=== PATIENT | male | born 1985 | race Caucasian/White ===

== ENCOUNTER 2020-11-14 03:00 | Inpatient (IN) | payer MEDICARE, MEDICAID ==
[~2020-11-14] VITALS: Ht 165.1 cm; Wt 86.3 kg
[2020-11-14] MEDS ORDERED: ZOLPIDEM TARTRATE 10 MG TABLET PO PRN (03:15)
[2020-11-14 04:27] VITALS: BP 97/60
[2020-11-14 08:17] VITALS: BP 122/77
[2020-11-14] MEDS ORDERED: ALBUTEROL SULFATE HFA 90 MCG/PUFF 8 GM INHALER IH PRN (13:00)
[2020-11-14] MEDS ORDERED: LOPERAMIDE HCL 2 MG CAPSULE PO PRN (13:00)
[2020-11-14] MEDS ORDERED: GuaiFENesin/D-METHORPHAN [SUGAR-FREE] 200-20MG/10 ML SYRUP UDCUP PO PRN (13:00)
[2020-11-14] MEDS ORDERED: MAG HYDROX/AL HYDROX/SIMETH ES 30 ML SUSPENSION UDCUP PO PRN (13:00)
[2020-11-14] MEDS ORDERED: MAGNESIUM HYDROXIDE SUSPENSION 30 ML UDCUP PO PRN (13:00)
[2020-11-14] MEDS ORDERED: CloNIDine HCL 0.1 MG TABLET PO PRN (13:00)
[2020-11-14] MEDS ORDERED: ACETAMINOPHEN 325 MG TABLET PO PRN (13:00)
[2020-11-14] MEDS ORDERED: ONDANSETRON HCL 4 MG TABLET PO PRN (13:00)
[2020-11-14] MEDS ORDERED: DOCUSATE SODIUM 100 MG CAPSULE PO PRN (13:00)
[2020-11-14] MEDS ORDERED: NICOTINE 14 MG/24 HOUR PATCH TD PRN (13:00)
[2020-11-14] MEDS: LORazepam 2 MG TABLET PO PRN (16:30)
[2020-11-14] MEDS: IBUPROFEN 400 MG TABLET PO PRN (16:31)
[2020-11-14 16:41] VITALS: BP 107/72
[2020-11-14] MEDS ORDERED: ChlorproMAZINE HCL 50 MG/2 ML AMP IM PRN ×2 (16:45)
[2020-11-14] MEDS ORDERED: DiphenhydrAMINE HCL 50 MG/ML VIAL IM PRN (16:45)
[2020-11-14] MEDS: QUEtiapine FUMARATE 200 MG TABLET PO SCH ×2 (17:00→20:21)
[2020-11-14] MEDS: TOPIRAMATE 100 MG TABLET PO SCH (17:00)
[2020-11-14] MEDS: CloZAPine 100 MG TABLET PO SCH (20:21)
[2020-11-15 00:18] VITALS: BP 114/73
[2020-11-15] MEDS: LORazepam 2 MG TABLET PO PRN ×2 (00:20→06:41)
[2020-11-15 08:08] LABS: BASOPHILS % (AUTO) 0.6 % (0.0-2.0); EOSINOPHILS % (AUTO) 5.9 % (1.0-6.0); HEMATOCRIT 33.6 % (41-53); HEMOGLOBIN 11.2 g/dL (13.5-17.5); LYMPHOCYTES # (AUTO) 1.5 K/uL (1.0-4.8); LYMPHOCYTES % (AUTO) 17.4 % (22.0-44.0); MEAN CORPUSCULAR HEMOGLOBIN 30.8 pg (26.0-34.0); MEAN CORPUSCULAR HGB CONC 33.5 G/dL (31.0-37.0); MEAN CORPUSCULAR VOLUME 92 fL (80-100); MONOCYTES # (AUTO) 0.7 K/uL (0.1-1.0); MONOCYTES % (AUTO) 7.8 % (2.0-9.0); NEUTROPHILS # (AUTO) 5.9 K/uL (1.8-7.7); NEUTROPHILS % (AUTO) 68.3 % (40.0-70.0); PLATELET COUNT (AUTO) 256 K/uL (150-450); RED BLOOD CELL COUNT(AUTO) 3.65 MIL/uL (4.50-5.90); RED CELL DISTRIBUTION WIDTH 13.6 % (11.5-14.5)
[2020-11-15 08:45] VITALS: BP 121/82
[2020-11-15 12:07] VITALS: BP 116/81
[2020-11-15] MEDS: PROPRANOLOL HCL 20 MG TABLET PO SCH ×2 (12:51→17:19)
[2020-11-15] MEDS: TOPIRAMATE 100 MG TABLET PO SCH ×2 (12:51→17:20)
[2020-11-15 16:40] VITALS: BP 108/74
[2020-11-15] MEDS: QUEtiapine FUMARATE 200 MG TABLET PO SCH ×2 (17:19→20:28)
[2020-11-15] MEDS: CloZAPine 100 MG TABLET PO SCH (20:28)
[2020-11-16 05:51] VITALS: BP 118/79
[2020-11-16 08:10] VITALS: BP 116/73
[2020-11-16] MEDS: LORazepam 2 MG TABLET PO PRN ×3 (08:23→18:11)
[2020-11-16 08:51] LABS: ANION GAP 12 mmol/L (8-16); CALCIUM, TOTAL 8.5 mg/dL (8.8-10.5); CARBON DIOXIDE 20 mmol/L (22-29); CHLORIDE 108 mmol/L (98-107); CHOL/HDL RATIO 3.2 (4.2-7.3); CHOLESTEROL 152 mg/dL (131-200); CREATININE 0.65 mg/dL (0.60-1.30); GLOMERULAR FILTR. RATE CALC > 60 mL/min (>60); GLUCOSE,RANDOM 156 mg/dL (70-110); HDL CHOLESTEROL 48 mg/dL (40-60); LDL CHOL (CALC.) 71 mg/dL (0-130); POTASSIUM 3.7 mmol/L (3.5-5.1); SODIUM SERUM 140 mmol/L (136-145); THYROID STIMULATING HORMONE 1.09 uIU/mL (0.36-3.74); TRIGLYCERIDES 165 mg/dL (15-150); UREA NITROGEN, BLOOD 6 mg/dL (7-18)
[2020-11-16] MEDS: TOPIRAMATE 100 MG TABLET PO SCH ×3 (13:07→18:12)
[2020-11-16] MEDS: PROPRANOLOL HCL 20 MG TABLET PO SCH ×3 (13:07→18:12)
[2020-11-16 16:00] VITALS: BP 116/69
[2020-11-16] MEDS: QUEtiapine FUMARATE 200 MG TABLET PO SCH ×2 (17:00→18:12)
[2020-11-16] MEDS: CloZAPine 100 MG TABLET PO SCH (20:03)
[2020-11-17 06:24] VITALS: BP 122/92
[2020-11-17] MEDS: LORazepam 2 MG TABLET PO PRN ×2 (06:33→11:33)
[2020-11-17 08:26] VITALS: BP 106/68
[2020-11-17] MEDS ORDERED: PNEUMOCOCCAL VACCINE POLYVALENT 0.5 ML VIAL [PPSV23] IM. ONE (13:00)
[2020-11-17 16:06] VITALS: BP 107/71
[2020-11-17] MEDS: QUEtiapine FUMARATE 200 MG TABLET PO SCH ×3 (17:00→20:48)
[2020-11-17] MEDS: PROPRANOLOL HCL 20 MG TABLET PO SCH (17:00)
[2020-11-17] MEDS: TOPIRAMATE 100 MG TABLET PO SCH (17:00)
[2020-11-17] MEDS: CloZAPine 100 MG TABLET PO SCH (20:35)
[2020-11-18 04:58] VITALS: BP 132/87
[2020-11-18] MEDS: LORazepam 2 MG TABLET PO PRN (07:23)
[2020-11-18 08:13] VITALS: BP 129/88
[2020-11-18] MEDS: QUEtiapine FUMARATE 100 MG TABLET PO PRN (09:16)
[2020-11-18] MEDS: TOPIRAMATE 100 MG TABLET PO SCH ×2 (11:09→16:30)
[2020-11-18] MEDS: PROPRANOLOL HCL 20 MG TABLET PO SCH ×2 (11:09→16:30)
[2020-11-18 16:02] VITALS: BP 106/69
[2020-11-18] MEDS: QUEtiapine FUMARATE 200 MG TABLET PO SCH ×2 (17:00→20:45)
[2020-11-18] MEDS: CloZAPine 100 MG TABLET PO SCH (20:45)
[2020-11-19 00:55] VITALS: BP 127/78
[2020-11-19 07:32] LABS: COVID AG,FIA SOURCE NASOPHARYNGEAL
[2020-11-19 08:13] VITALS: BP 120/79
[2020-11-19] MEDS: CloZAPine 25 MG TABLET PO SCH (08:29)
[2020-11-19] MEDS: PROPRANOLOL HCL 20 MG TABLET PO SCH ×2 (11:34→16:28)
[2020-11-19] MEDS: TOPIRAMATE 100 MG TABLET PO SCH ×2 (11:34→16:28)
[2020-11-19 16:04] VITALS: BP 130/92
[2020-11-19] MEDS: QUEtiapine FUMARATE 200 MG TABLET PO SCH ×2 (16:28→20:30)
[2020-11-19] MEDS: LORazepam 2 MG TABLET PO PRN (18:20)
[2020-11-19] MEDS: CloZAPine 100 MG TABLET PO SCH (20:30)
[2020-11-20 00:12] VITALS: BP 111/72
[2020-11-20] MEDS: LORazepam 2 MG TABLET PO PRN ×3 (06:33→20:05)
[2020-11-20 08:28] VITALS: BP 106/69
[2020-11-20] MEDS: CloZAPine 25 MG TABLET PO SCH (09:06)
[2020-11-20] MEDS: TOPIRAMATE 100 MG TABLET PO SCH ×2 (12:20→16:11)
[2020-11-20] MEDS: PROPRANOLOL HCL 20 MG TABLET PO SCH ×2 (12:20→16:11)
[2020-11-20 16:01] VITALS: BP 106/71
[2020-11-20] MEDS: QUEtiapine FUMARATE 200 MG TABLET PO SCH ×2 (16:11→21:00)
[2020-11-20] MEDS: PALIPERIDONE 6 MG ER TABLET PO SCH (20:04)
[2020-11-20] MEDS: CloZAPine 100 MG TABLET PO SCH (20:04)
[2020-11-21 05:31] VITALS: BP 101/70
[2020-11-21] MEDS: LORazepam 2 MG TABLET PO PRN ×2 (08:01→12:56)
[2020-11-21] MEDS: MULTIVITAMINS WITH MINERALS, THERAPEUTIC TABLET PO SCH (08:01)
[2020-11-21 08:02] VITALS: BP 114/74
[2020-11-21] MEDS: PALIPERIDONE 6 MG ER TABLET PO SCH ×2 (08:02→20:33)
[2020-11-21] MEDS: CloZAPine 25 MG TABLET PO SCH (08:02)
[2020-11-21] MEDS: PROPRANOLOL HCL 20 MG TABLET PO SCH ×2 (11:13→16:31)
[2020-11-21] MEDS: TOPIRAMATE 100 MG TABLET PO SCH ×2 (11:14→16:31)
[2020-11-21 16:01] VITALS: BP 112/74
[2020-11-21] MEDS: QUEtiapine FUMARATE 200 MG TABLET PO SCH ×2 (16:31→20:33)
[2020-11-21] MEDS: PETROLATUM,WHITE 28 GM JELLY TP PRN (20:18)
[2020-11-21] MEDS: CloZAPine 100 MG TABLET PO SCH (20:33)
[2020-11-22 00:08] VITALS: BP 105/62
[2020-11-22 08:11] VITALS: BP 110/73
[2020-11-22] MEDS: CloZAPine 25 MG TABLET PO SCH (08:29)
[2020-11-22] MEDS: PALIPERIDONE 6 MG ER TABLET PO SCH ×2 (08:29→20:33)
[2020-11-22] MEDS: MULTIVITAMINS WITH MINERALS, THERAPEUTIC TABLET PO SCH (08:29)
[2020-11-22] MEDS: LORazepam 2 MG TABLET PO PRN ×2 (11:19→18:59)
[2020-11-22 12:10] VITALS: BP 125/85
[2020-11-22] MEDS: TOPIRAMATE 100 MG TABLET PO SCH ×2 (12:11→16:26)
[2020-11-22] MEDS: PROPRANOLOL HCL 20 MG TABLET PO SCH ×2 (12:12→16:27)
[2020-11-22 16:01] VITALS: BP 115/84
[2020-11-22] MEDS: QUEtiapine FUMARATE 200 MG TABLET PO SCH ×2 (16:26→20:33)
[2020-11-22] MEDS: CloZAPine 100 MG TABLET PO SCH (20:33)
[2020-11-23 00:10] VITALS: BP 88/55
[2020-11-23 07:40] LABS: BASOPHILS % (AUTO) 0.5 % (0.0-2.0); EOSINOPHILS % (AUTO) 3.9 % (1.0-6.0); HEMATOCRIT 36.1 % (41-53); HEMOGLOBIN 11.8 g/dL (13.5-17.5); LYMPHOCYTES # (AUTO) 1.2 K/uL (1.0-4.8); LYMPHOCYTES % (AUTO) 9.9 % (22.0-44.0); MEAN CORPUSCULAR HEMOGLOBIN 30.1 pg (26.0-34.0); MEAN CORPUSCULAR HGB CONC 32.7 G/dL (31.0-37.0); MEAN CORPUSCULAR VOLUME 92 fL (80-100); MONOCYTES # (AUTO) 0.9 K/uL (0.1-1.0); MONOCYTES % (AUTO) 7.3 % (2.0-9.0); NEUTROPHILS # (AUTO) 9.9 K/uL (1.8-7.7); NEUTROPHILS % (AUTO) 78.4 % (40.0-70.0); PLATELET COUNT (AUTO) 356 K/uL (150-450); RED BLOOD CELL COUNT(AUTO) 3.92 MIL/uL (4.50-5.90); RED CELL DISTRIBUTION WIDTH 14.3 % (11.5-14.5)
[2020-11-23 07:56] LABS: COVID AG,FIA SOURCE NASOPHARYNGEAL
[2020-11-23 08:26] VITALS: BP 112/68
[2020-11-23] MEDS: MULTIVITAMINS WITH MINERALS, THERAPEUTIC TABLET PO SCH (08:26)
[2020-11-23] MEDS: PALIPERIDONE 6 MG ER TABLET PO SCH ×2 (08:27→20:18)
[2020-11-23] MEDS: CloZAPine 25 MG TABLET PO SCH (08:27)
[2020-11-23] MEDS: LORazepam 2 MG TABLET PO PRN ×3 (10:16→20:17)
[2020-11-23] MEDS: TOPIRAMATE 100 MG TABLET PO SCH ×2 (12:11→16:13)
[2020-11-23] MEDS: PROPRANOLOL HCL 20 MG TABLET PO SCH ×2 (12:14→16:12)
[2020-11-23 16:04] VITALS: BP 107/70
[2020-11-23] MEDS: QUEtiapine FUMARATE 200 MG TABLET PO SCH ×2 (16:12→20:18)
[2020-11-23] MEDS: CloZAPine 100 MG TABLET PO SCH (20:18)
[2020-11-24 00:24] VITALS: BP 110/68
[2020-11-24] MEDS: PALIPERIDONE 6 MG ER TABLET PO SCH ×2 (08:08→20:12)
[2020-11-24] MEDS: CloZAPine 25 MG TABLET PO SCH (08:08)
[2020-11-24] MEDS: MULTIVITAMINS WITH MINERALS, THERAPEUTIC TABLET PO SCH (08:08)
[2020-11-24 08:24] VITALS: BP 113/78
[2020-11-24] MEDS: PROPRANOLOL HCL 20 MG TABLET PO SCH ×2 (12:11→15:58)
[2020-11-24] MEDS: TOPIRAMATE 100 MG TABLET PO SCH ×2 (12:12→15:58)
[2020-11-24] MEDS: LORazepam 2 MG TABLET PO PRN (12:19)
[2020-11-24] MEDS: QUEtiapine FUMARATE 200 MG TABLET PO SCH ×2 (15:57→20:13)
[2020-11-24 16:19] VITALS: BP 100/66
[2020-11-24] MEDS: CloZAPine 100 MG TABLET PO SCH (20:13)
[2020-11-25 00:47] VITALS: BP 110/62
[2020-11-25 08:05] VITALS: BP 111/76
[2020-11-25] MEDS: MULTIVITAMINS WITH MINERALS, THERAPEUTIC TABLET PO SCH (08:23)
[2020-11-25] MEDS: CloZAPine 25 MG TABLET PO SCH (08:23)
[2020-11-25] MEDS: LORazepam 2 MG TABLET PO PRN ×3 (08:23→18:50)
[2020-11-25] MEDS: PETROLATUM,WHITE 28 GM JELLY TP PRN (08:23)
[2020-11-25] MEDS: PALIPERIDONE 6 MG ER TABLET PO SCH ×2 (08:23→20:42)
[2020-11-25] MEDS: PROPRANOLOL HCL 20 MG TABLET PO SCH ×2 (12:48→17:08)
[2020-11-25] MEDS: TOPIRAMATE 100 MG TABLET PO SCH ×2 (12:48→17:08)
[2020-11-25 16:01] VITALS: BP 111/64
[2020-11-25] MEDS: QUEtiapine FUMARATE 200 MG TABLET PO SCH ×2 (16:40→20:42)
[2020-11-25] MEDS: CloZAPine 100 MG TABLET PO SCH (20:41)
[2020-11-26 00:40] VITALS: BP 109/57
[2020-11-26 08:07] VITALS: BP 116/73
[2020-11-26] MEDS: LORazepam 2 MG TABLET PO PRN ×3 (08:40→19:10)
[2020-11-26] MEDS: MULTIVITAMINS WITH MINERALS, THERAPEUTIC TABLET PO SCH (08:40)
[2020-11-26] MEDS: PALIPERIDONE 6 MG ER TABLET PO SCH ×2 (08:40→20:31)
[2020-11-26] MEDS: CloZAPine 25 MG TABLET PO SCH (08:40)
[2020-11-26] MEDS: TOPIRAMATE 100 MG TABLET PO SCH ×2 (11:40→16:30)
[2020-11-26] MEDS: PROPRANOLOL HCL 20 MG TABLET PO SCH ×2 (11:40→16:30)
[2020-11-26] MEDS: PETROLATUM,WHITE 28 GM JELLY TP PRN (11:40)
[2020-11-26 16:04] VITALS: BP 112/68
[2020-11-26] MEDS: QUEtiapine FUMARATE 200 MG TABLET PO SCH ×2 (16:30→20:31)
[2020-11-26] MEDS: CloZAPine 100 MG TABLET PO SCH (20:31)
[2020-11-27 05:35] VITALS: BP 102/71
[2020-11-27] MEDS: PETROLATUM,WHITE 28 GM JELLY TP PRN (05:48)
[2020-11-27] MEDS: LORazepam 2 MG TABLET PO PRN ×3 (05:48→19:19)
[2020-11-27 08:07] VITALS: BP 106/68
[2020-11-27] MEDS: MULTIVITAMINS WITH MINERALS, THERAPEUTIC TABLET PO SCH (09:02)
[2020-11-27] MEDS: PALIPERIDONE 6 MG ER TABLET PO SCH ×2 (09:02→20:28)
[2020-11-27] MEDS: CloZAPine 25 MG TABLET PO SCH (09:02)
[2020-11-27] MEDS: TOPIRAMATE 100 MG TABLET PO SCH ×2 (12:09→16:27)
[2020-11-27] MEDS: PROPRANOLOL HCL 20 MG TABLET PO SCH ×2 (12:10→16:27)
[2020-11-27 16:12] VITALS: BP 102/68
[2020-11-27] MEDS: QUEtiapine FUMARATE 200 MG TABLET PO SCH ×2 (16:27→20:28)
[2020-11-27] MEDS: CloZAPine 100 MG TABLET PO SCH (20:28)
[2020-11-28 00:22] VITALS: BP 93/57
[2020-11-28 08:06] VITALS: BP 113/68
[2020-11-28] MEDS: MULTIVITAMINS WITH MINERALS, THERAPEUTIC TABLET PO SCH (08:23)
[2020-11-28] MEDS: PALIPERIDONE 6 MG ER TABLET PO SCH ×2 (08:23→20:16)
[2020-11-28] MEDS: LORazepam 2 MG TABLET PO PRN ×2 (08:24→12:29)
[2020-11-28] MEDS: CloZAPine 25 MG TABLET PO SCH (08:24)
[2020-11-28] MEDS: PROPRANOLOL HCL 20 MG TABLET PO SCH ×2 (12:28→16:01)
[2020-11-28] MEDS: TOPIRAMATE 100 MG TABLET PO SCH ×2 (12:29→16:02)
[2020-11-28] MEDS: QUEtiapine FUMARATE 200 MG TABLET PO SCH ×2 (16:02→20:16)
[2020-11-28 16:04] VITALS: BP 102/65
[2020-11-28] MEDS: CloZAPine 100 MG TABLET PO SCH (20:16)
[2020-11-29 00:18] VITALS: BP 90/56
[2020-11-29] MEDS: LORazepam 2 MG TABLET PO PRN ×4 (04:17→20:11)
[2020-11-29] MEDS: PETROLATUM,WHITE 28 GM JELLY TP PRN (06:14)
[2020-11-29 07:54] LABS: BASOPHILS % (AUTO) 0.9 % (0.0-2.0); EOSINOPHILS % (AUTO) 7.1 % (1.0-6.0); HEMATOCRIT 33.2 % (41-53); HEMOGLOBIN 11.1 g/dL (13.5-17.5); LYMPHOCYTES # (AUTO) 1.6 K/uL (1.0-4.8); LYMPHOCYTES % (AUTO) 21.3 % (22.0-44.0); MEAN CORPUSCULAR HGB CONC 33.4 G/dL (31.0-37.0); MEAN CORPUSCULAR VOLUME 93 fL (80-100); MONOCYTES # (AUTO) 0.7 K/uL (0.1-1.0); MONOCYTES % (AUTO) 9.7 % (2.0-9.0); NEUTROPHILS # (AUTO) 4.5 K/uL (1.8-7.7); PLATELET COUNT (AUTO) 366 K/uL (150-450); RED BLOOD CELL COUNT(AUTO) 3.57 MIL/uL (4.50-5.90); RED CELL DISTRIBUTION WIDTH 14.4 % (11.5-14.5)
[2020-11-29 07:55] LABS: COVID AG,FIA SOURCE NASOPHARYNGEAL
[2020-11-29] MEDS: CloZAPine 25 MG TABLET PO SCH (07:56)
[2020-11-29] MEDS: PALIPERIDONE 6 MG ER TABLET PO SCH ×2 (07:56→20:05)
[2020-11-29] MEDS: MULTIVITAMINS WITH MINERALS, THERAPEUTIC TABLET PO SCH (07:56)
[2020-11-29 08:03] VITALS: BP 104/63
[2020-11-29] MEDS: PROPRANOLOL HCL 20 MG TABLET PO SCH ×2 (12:15→16:01)
[2020-11-29] MEDS: TOPIRAMATE 100 MG TABLET PO SCH ×2 (12:15→16:02)
[2020-11-29] MEDS: QUEtiapine FUMARATE 200 MG TABLET PO SCH ×2 (16:01→20:05)
[2020-11-29 16:02] VITALS: BP 103/71
[2020-11-29] MEDS: IBUPROFEN 400 MG TABLET PO PRN (16:43)
[2020-11-29] MEDS: CloZAPine 100 MG TABLET PO SCH (20:06)
[2020-11-30 00:23] VITALS: BP 103/62
[2020-11-30] MEDS: LORazepam 2 MG TABLET PO PRN (08:12)
[2020-11-30] MEDS: MULTIVITAMINS WITH MINERALS, THERAPEUTIC TABLET PO SCH (08:12)
[2020-11-30] MEDS: PALIPERIDONE 6 MG ER TABLET PO SCH ×2 (08:12→20:29)
[2020-11-30] MEDS: CloZAPine 25 MG TABLET PO SCH (08:12)
[2020-11-30 08:24] VITALS: BP 108/68
[2020-11-30] MEDS: TOPIRAMATE 100 MG TABLET PO SCH ×2 (11:45→17:05)
[2020-11-30] MEDS: PROPRANOLOL HCL 20 MG TABLET PO SCH ×2 (11:46→17:05)
[2020-11-30 16:01] VITALS: BP 110/68
[2020-11-30] MEDS: QUEtiapine FUMARATE 200 MG TABLET PO SCH ×2 (17:05→20:55)
[2020-11-30] MEDS: CloZAPine 100 MG TABLET PO SCH (20:29)
[2020-12-01 00:13] VITALS: BP 120/78
[2020-12-01 08:18] VITALS: BP 106/69
[2020-12-01] MEDS: PALIPERIDONE 6 MG ER TABLET PO SCH ×2 (09:00→20:42)
[2020-12-01] MEDS: MULTIVITAMINS WITH MINERALS, THERAPEUTIC TABLET PO SCH (09:16)
[2020-12-01] MEDS: CloZAPine 25 MG TABLET PO SCH (09:16)
[2020-12-01] MEDS: TOPIRAMATE 100 MG TABLET PO SCH ×2 (11:56→16:35)
[2020-12-01] MEDS: PROPRANOLOL HCL 20 MG TABLET PO SCH ×2 (11:56→16:35)
[2020-12-01] MEDS: LORazepam 2 MG TABLET PO PRN ×2 (12:05→20:25)
[2020-12-01 16:00] VITALS: BP 110/62
[2020-12-01] MEDS: QUEtiapine FUMARATE 200 MG TABLET PO SCH ×3 (17:00→21:20)
[2020-12-01] MEDS: CloZAPine 100 MG TABLET PO SCH (20:43)
[2020-12-02 00:11] VITALS: BP 78/52
[2020-12-02] MEDS: CloZAPine 25 MG TABLET PO SCH (08:04)
[2020-12-02] MEDS: PALIPERIDONE 6 MG ER TABLET PO SCH ×2 (08:04→20:49)
[2020-12-02] MEDS: MULTIVITAMINS WITH MINERALS, THERAPEUTIC TABLET PO SCH (08:04)
[2020-12-02] MEDS: LORazepam 2 MG TABLET PO PRN ×2 (08:05→20:24)
[2020-12-02] MEDS: TOPIRAMATE 100 MG TABLET PO SCH ×2 (12:00→17:32)
[2020-12-02] MEDS: PROPRANOLOL HCL 20 MG TABLET PO SCH ×2 (12:01→17:33)
[2020-12-02 13:31] VITALS: BP 99/64
[2020-12-02 17:33] VITALS: BP 114/69
[2020-12-02] MEDS: QUEtiapine FUMARATE 200 MG TABLET PO SCH ×2 (17:33→20:49)
[2020-12-02] MEDS: CloZAPine 100 MG TABLET PO SCH (20:49)
[2020-12-03 00:13] VITALS: BP 104/62
[2020-12-03] MEDS: CloZAPine 25 MG TABLET PO SCH (09:09)
[2020-12-03] MEDS: PALIPERIDONE 6 MG ER TABLET PO SCH ×2 (09:09→20:12)
[2020-12-03] MEDS: MULTIVITAMINS WITH MINERALS, THERAPEUTIC TABLET PO SCH (09:09)
[2020-12-03] MEDS: PROPRANOLOL HCL 20 MG TABLET PO SCH ×2 (11:21→16:15)
[2020-12-03] MEDS: TOPIRAMATE 100 MG TABLET PO SCH ×2 (11:21→16:14)
[2020-12-03 12:37] VITALS: BP 95/63
[2020-12-03] MEDS: LORazepam 2 MG TABLET PO PRN ×2 (14:39→21:28)
[2020-12-03 16:04] VITALS: BP 110/68
[2020-12-03] MEDS: QUEtiapine FUMARATE 200 MG TABLET PO SCH ×2 (16:14→20:12)
[2020-12-03] MEDS: CloZAPine 100 MG TABLET PO SCH (20:12)
[2020-12-04 00:05] VITALS: BP 104/62
[2020-12-04 08:05] VITALS: BP 109/64
[2020-12-04] MEDS: CloZAPine 25 MG TABLET PO SCH (08:19)
[2020-12-04] MEDS: PALIPERIDONE 6 MG ER TABLET PO SCH ×2 (08:20→20:01)
[2020-12-04] MEDS: MULTIVITAMINS WITH MINERALS, THERAPEUTIC TABLET PO SCH (08:20)
[2020-12-04] MEDS: TOPIRAMATE 100 MG TABLET PO SCH ×2 (12:25→15:43)
[2020-12-04] MEDS: PROPRANOLOL HCL 20 MG TABLET PO SCH ×2 (12:25→15:43)
[2020-12-04] MEDS: QUEtiapine FUMARATE 200 MG TABLET PO SCH ×2 (15:43→20:01)
[2020-12-04 16:19] VITALS: BP 100/62
[2020-12-04] MEDS: LORazepam 2 MG TABLET PO PRN (19:02)
[2020-12-04] MEDS: CloZAPine 100 MG TABLET PO SCH (20:01)
[2020-12-05 00:57] VITALS: BP 106/63
[2020-12-05 08:31] VITALS: BP 108/64
[2020-12-05] MEDS: MULTIVITAMINS WITH MINERALS, THERAPEUTIC TABLET PO SCH ×2 (09:00→09:04)
[2020-12-05] MEDS: THIAMINE 100 MG TABLET PO SCH (09:06)
[2020-12-05] MEDS: PALIPERIDONE 6 MG ER TABLET PO SCH ×3 (09:06→20:45)
[2020-12-05] MEDS: CloZAPine 25 MG TABLET PO SCH (09:07)
[2020-12-05] MEDS: PROPRANOLOL HCL 20 MG TABLET PO SCH ×2 (12:15→16:55)
[2020-12-05] MEDS: LORazepam 2 MG TABLET PO PRN (12:15)
[2020-12-05] MEDS: TOPIRAMATE 100 MG TABLET PO SCH ×2 (12:15→16:57)
[2020-12-05 16:19] VITALS: BP 104/71
[2020-12-05] MEDS: QUEtiapine FUMARATE 200 MG TABLET PO SCH ×2 (16:57→20:22)
[2020-12-05] MEDS: CloZAPine 100 MG TABLET PO SCH (20:22)
[2020-12-06 00:58] VITALS: BP 103/62
[2020-12-06 07:37] LABS: BASOPHILS % (AUTO) 0.8 % (0.0-2.0); EOSINOPHILS % (AUTO) 6.7 % (1.0-6.0); HEMATOCRIT 34.8 % (41-53); HEMOGLOBIN 11.7 g/dL (13.5-17.5); LYMPHOCYTES # (AUTO) 1.5 K/uL (1.0-4.8); LYMPHOCYTES % (AUTO) 21.3 % (22.0-44.0); MEAN CORPUSCULAR HEMOGLOBIN 31.1 pg (26.0-34.0); MEAN CORPUSCULAR HGB CONC 33.5 G/dL (31.0-37.0); MEAN CORPUSCULAR VOLUME 93 fL (80-100); MONOCYTES # (AUTO) 0.7 K/uL (0.1-1.0); MONOCYTES % (AUTO) 9.4 % (2.0-9.0); NEUTROPHILS # (AUTO) 4.3 K/uL (1.8-7.7); NEUTROPHILS % (AUTO) 61.8 % (40.0-70.0); PLATELET COUNT (AUTO) 362 K/uL (150-450); RED BLOOD CELL COUNT(AUTO) 3.75 MIL/uL (4.50-5.90); RED CELL DISTRIBUTION WIDTH 14.3 % (11.5-14.5)
[2020-12-06 07:39] LABS: COVID AG,FIA SOURCE NASOPHARYNGEAL
[2020-12-06] MEDS: CloZAPine 25 MG TABLET PO SCH (08:52)
[2020-12-06] MEDS: PALIPERIDONE 6 MG ER TABLET PO SCH ×2 (08:52→20:33)
[2020-12-06] MEDS: THIAMINE 100 MG TABLET PO SCH (08:53)
[2020-12-06] MEDS: MULTIVITAMINS WITH MINERALS, THERAPEUTIC TABLET PO SCH ×2 (08:53→09:00)
[2020-12-06 09:18] VITALS: BP 112/66
[2020-12-06] MEDS: PROPRANOLOL HCL 20 MG TABLET PO SCH ×2 (12:15→16:35)
[2020-12-06] MEDS: TOPIRAMATE 100 MG TABLET PO SCH ×2 (12:16→16:35)
[2020-12-06] MEDS: LORazepam 2 MG TABLET PO PRN (15:51)
[2020-12-06 16:07] VITALS: BP 111/68
[2020-12-06] MEDS: QUEtiapine FUMARATE 200 MG TABLET PO SCH ×2 (16:35→20:33)
[2020-12-06] MEDS: CloZAPine 100 MG TABLET PO SCH (20:33)
[2020-12-07 00:21] VITALS: BP 104/54
[2020-12-07 08:13] VITALS: BP 103/68
[2020-12-07] MEDS: MULTIVITAMINS WITH MINERALS, THERAPEUTIC TABLET PO SCH ×2 (08:35→08:37)
[2020-12-07] MEDS: CloZAPine 25 MG TABLET PO SCH (08:36)
[2020-12-07] MEDS: THIAMINE 100 MG TABLET PO SCH (08:37)
[2020-12-07] MEDS: PALIPERIDONE 6 MG ER TABLET PO SCH ×2 (09:00→20:29)
[2020-12-07] MEDS: LORazepam 2 MG TABLET PO PRN ×2 (11:01→18:40)
[2020-12-07] MEDS: TOPIRAMATE 100 MG TABLET PO SCH ×2 (12:05→16:24)
[2020-12-07] MEDS: PROPRANOLOL HCL 20 MG TABLET PO SCH ×2 (12:05→16:24)
[2020-12-07 16:08] VITALS: BP 108/76
[2020-12-07] MEDS: QUEtiapine FUMARATE 200 MG TABLET PO SCH ×2 (16:25→20:29)
[2020-12-07] MEDS: CloZAPine 100 MG TABLET PO SCH (20:30)
[2020-12-08 00:33] VITALS: BP 110/70
[2020-12-08 08:12] VITALS: BP 111/67
[2020-12-08] MEDS: MULTIVITAMINS WITH MINERALS, THERAPEUTIC TABLET PO SCH (09:30)
[2020-12-08] MEDS: CloZAPine 25 MG TABLET PO SCH (09:30)
[2020-12-08] MEDS: PALIPERIDONE 6 MG ER TABLET PO SCH ×2 (09:31→20:17)
[2020-12-08] MEDS: THIAMINE 100 MG TABLET PO SCH (09:31)
[2020-12-08] MEDS: TOPIRAMATE 100 MG TABLET PO SCH ×2 (12:06→16:10)
[2020-12-08] MEDS: PROPRANOLOL HCL 20 MG TABLET PO SCH ×2 (12:06→16:10)
[2020-12-08 16:08] VITALS: BP 104/71
[2020-12-08] MEDS: QUEtiapine FUMARATE 200 MG TABLET PO SCH ×2 (16:10→20:12)
[2020-12-08] MEDS: CloZAPine 100 MG TABLET PO SCH (20:17)
[2020-12-09 00:24] VITALS: BP 102/63
[2020-12-09] MEDS: MULTIVITAMINS WITH MINERALS, THERAPEUTIC TABLET PO SCH (08:57)
[2020-12-09] MEDS: PALIPERIDONE 6 MG ER TABLET PO SCH ×2 (08:57→20:47)
[2020-12-09] MEDS: CloZAPine 25 MG TABLET PO SCH (08:57)
[2020-12-09] MEDS: THIAMINE 100 MG TABLET PO SCH (08:57)
[2020-12-09 09:25] VITALS: BP 109/78
[2020-12-09] MEDS: PROPRANOLOL HCL 20 MG TABLET PO SCH ×2 (12:52→16:34)
[2020-12-09] MEDS: TOPIRAMATE 100 MG TABLET PO SCH ×2 (12:52→16:34)
[2020-12-09 16:06] VITALS: BP 107/66
[2020-12-09] MEDS: QUEtiapine FUMARATE 200 MG TABLET PO SCH ×2 (16:34→20:47)
[2020-12-09] MEDS: CloZAPine 100 MG TABLET PO SCH (20:46)
[2020-12-10] MEDS: LORazepam 2 MG TABLET PO PRN ×3 (00:11→20:11)
[2020-12-10 00:24] VITALS: BP 105/72
[2020-12-10 08:14] VITALS: BP 100/63
[2020-12-10] MEDS: PALIPERIDONE 6 MG ER TABLET PO SCH ×2 (08:52→20:11)
[2020-12-10] MEDS: CloZAPine 25 MG TABLET PO SCH (08:53)
[2020-12-10] MEDS: MULTIVITAMINS WITH MINERALS, THERAPEUTIC TABLET PO SCH (08:53)
[2020-12-10] MEDS: THIAMINE 100 MG TABLET PO SCH (08:53)
[2020-12-10] MEDS: TOPIRAMATE 100 MG TABLET PO SCH ×2 (13:18→16:22)
[2020-12-10] MEDS: PROPRANOLOL HCL 20 MG TABLET PO SCH ×2 (13:18→16:22)
[2020-12-10 16:14] VITALS: BP 109/77
[2020-12-10] MEDS: QUEtiapine FUMARATE 200 MG TABLET PO SCH ×2 (16:22→20:11)
[2020-12-10] MEDS: CloZAPine 100 MG TABLET PO SCH (20:11)
[2020-12-10] MEDS ORDERED: TUBERCULIN, PURIFIED PROTEIN DERIVATIVE 5 TU/0.1 ML SYRINGE ID ONE (21:30)
[2020-12-11 05:00] VITALS: BP 102/67
[2020-12-11 08:29] VITALS: BP 121/79
[2020-12-11] MEDS: THIAMINE 100 MG TABLET PO SCH (09:08)
[2020-12-11] MEDS: PALIPERIDONE 6 MG ER TABLET PO SCH ×2 (09:08→20:29)
[2020-12-11] MEDS: CloZAPine 25 MG TABLET PO SCH (09:09)
[2020-12-11] MEDS: MULTIVITAMINS WITH MINERALS, THERAPEUTIC TABLET PO SCH (09:09)
[2020-12-11] MEDS: LORazepam 2 MG TABLET PO PRN (09:09)
[2020-12-11] MEDS: PROPRANOLOL HCL 20 MG TABLET PO SCH ×2 (11:54→16:31)
[2020-12-11] MEDS: TOPIRAMATE 100 MG TABLET PO SCH ×2 (11:54→16:30)
[2020-12-11 16:09] VITALS: BP 110/67
[2020-12-11] MEDS: QUEtiapine FUMARATE 200 MG TABLET PO SCH ×2 (16:31→20:29)
[2020-12-11] MEDS: CloZAPine 100 MG TABLET PO SCH (20:28)
[2020-12-12 00:41] VITALS: BP 104/62
[2020-12-12 08:29] VITALS: BP 104/69
[2020-12-12] MEDS: CloZAPine 25 MG TABLET PO SCH (09:20)
[2020-12-12] MEDS: PALIPERIDONE 6 MG ER TABLET PO SCH ×2 (09:20→20:42)
[2020-12-12] MEDS: MULTIVITAMINS WITH MINERALS, THERAPEUTIC TABLET PO SCH (09:20)
[2020-12-12] MEDS: THIAMINE 100 MG TABLET PO SCH (09:21)
[2020-12-12] MEDS: LORazepam 2 MG TABLET PO PRN ×2 (10:52→16:09)
[2020-12-12] MEDS: TOPIRAMATE 100 MG TABLET PO SCH ×2 (12:33→16:09)
[2020-12-12] MEDS: PROPRANOLOL HCL 20 MG TABLET PO SCH ×2 (12:33→16:09)
[2020-12-12] MEDS: QUEtiapine FUMARATE 200 MG TABLET PO SCH ×2 (16:09→20:43)
[2020-12-12 16:10] VITALS: BP 133/82
[2020-12-12] MEDS: QUEtiapine FUMARATE 100 MG TABLET PO PRN (20:42)
[2020-12-12] MEDS: CloZAPine 100 MG TABLET PO SCH (20:42)
[2020-12-13 00:45] VITALS: BP 114/73
[2020-12-13 07:21] LABS: BASOPHILS % (AUTO) 0.8 % (0.0-2.0); HEMATOCRIT 35.1 % (41-53); HEMOGLOBIN 11.6 g/dL (13.5-17.5); LYMPHOCYTES # (AUTO) 1.8 K/uL (1.0-4.8); LYMPHOCYTES % (AUTO) 26.4 % (22.0-44.0); MEAN CORPUSCULAR HEMOGLOBIN 30.9 pg (26.0-34.0); MEAN CORPUSCULAR HGB CONC 33.2 G/dL (31.0-37.0); MEAN CORPUSCULAR VOLUME 93 fL (80-100); MONOCYTES # (AUTO) 0.7 K/uL (0.1-1.0); MONOCYTES % (AUTO) 10.7 % (2.0-9.0); NEUTROPHILS # (AUTO) 3.6 K/uL (1.8-7.7); NEUTROPHILS % (AUTO) 53.1 % (40.0-70.0); PLATELET COUNT (AUTO) 354 K/uL (150-450); RED BLOOD CELL COUNT(AUTO) 3.76 MIL/uL (4.50-5.90); RED CELL DISTRIBUTION WIDTH 14.4 % (11.5-14.5)
[2020-12-13 07:31] LABS: COVID AG,FIA SOURCE NASOPHARYNGEAL
[2020-12-13] MEDS: MULTIVITAMINS WITH MINERALS, THERAPEUTIC TABLET PO SCH (08:02)
[2020-12-13] MEDS: THIAMINE 100 MG TABLET PO SCH (08:02)
[2020-12-13] MEDS: CloZAPine 25 MG TABLET PO SCH (08:02)
[2020-12-13] MEDS: PALIPERIDONE 6 MG ER TABLET PO SCH ×2 (08:02→20:08)
[2020-12-13 08:25] VITALS: BP 116/80
[2020-12-13] MEDS: TOPIRAMATE 100 MG TABLET PO SCH ×2 (11:23→16:01)
[2020-12-13] MEDS: PROPRANOLOL HCL 20 MG TABLET PO SCH ×2 (11:26→16:01)
[2020-12-13] MEDS: QUEtiapine FUMARATE 200 MG TABLET PO SCH ×2 (16:01→20:10)
[2020-12-13 16:19] VITALS: BP 117/79
[2020-12-13] MEDS: LORazepam 2 MG TABLET PO PRN (18:11)
[2020-12-13] MEDS: CloZAPine 100 MG TABLET PO SCH (20:08)
[2020-12-14] VITALS: BP 127/84
[2020-12-14 08:08] VITALS: BP 112/73
[2020-12-14] MEDS: CloZAPine 25 MG TABLET PO SCH (08:18)
[2020-12-14] MEDS: MULTIVITAMINS WITH MINERALS, THERAPEUTIC TABLET PO SCH (08:18)
[2020-12-14] MEDS: THIAMINE 100 MG TABLET PO SCH (08:18)
[2020-12-14] MEDS: PALIPERIDONE 6 MG ER TABLET PO SCH ×2 (08:18→20:24)
[2020-12-14] MEDS: LORazepam 2 MG TABLET PO PRN (09:29)
[2020-12-14] MEDS: TOPIRAMATE 100 MG TABLET PO SCH ×2 (12:17→16:38)
[2020-12-14] MEDS: PROPRANOLOL HCL 20 MG TABLET PO SCH ×2 (12:18→16:39)
[2020-12-14 16:07] VITALS: BP 128/84
[2020-12-14] MEDS: QUEtiapine FUMARATE 200 MG TABLET PO SCH ×2 (16:38→20:24)
[2020-12-14] MEDS: CloZAPine 100 MG TABLET PO SCH (20:24)
[2020-12-15] MEDS: LORazepam 2 MG TABLET PO PRN ×2 (01:36→19:38)
[2020-12-15 01:41] VITALS: BP 94/58
[2020-12-15] MEDS: MULTIVITAMINS WITH MINERALS, THERAPEUTIC TABLET PO SCH (08:18)
[2020-12-15] MEDS: THIAMINE 100 MG TABLET PO SCH (08:18)
[2020-12-15] MEDS: CloZAPine 25 MG TABLET PO SCH (08:18)
[2020-12-15] MEDS: PALIPERIDONE 6 MG ER TABLET PO SCH ×2 (08:18→20:26)
[2020-12-15 08:19] VITALS: BP 108/73
[2020-12-15] MEDS: PROPRANOLOL HCL 20 MG TABLET PO SCH ×2 (12:19→16:22)
[2020-12-15] MEDS: TOPIRAMATE 100 MG TABLET PO SCH ×2 (12:19→16:22)
[2020-12-15 16:10] VITALS: BP 120/72
[2020-12-15] MEDS: QUEtiapine FUMARATE 200 MG TABLET PO SCH ×2 (16:22→20:27)
[2020-12-15] MEDS: CloZAPine 100 MG TABLET PO SCH (20:27)
[2020-12-16] MEDS: LORazepam 2 MG TABLET PO PRN ×2 (02:32→17:17)
[2020-12-16 02:34] VITALS: BP 100/60
[2020-12-16 08:08] VITALS: BP 117/62
[2020-12-16] MEDS: THIAMINE 100 MG TABLET PO SCH (08:21)
[2020-12-16] MEDS: MULTIVITAMINS WITH MINERALS, THERAPEUTIC TABLET PO SCH (08:21)
[2020-12-16] MEDS: PALIPERIDONE 6 MG ER TABLET PO SCH ×2 (08:22→20:16)
[2020-12-16] MEDS: CloZAPine 25 MG TABLET PO SCH (08:22)
[2020-12-16] MEDS: TOPIRAMATE 100 MG TABLET PO SCH ×2 (11:59→16:29)
[2020-12-16] MEDS: PROPRANOLOL HCL 20 MG TABLET PO SCH ×2 (11:59→16:28)
[2020-12-16 16:10] VITALS: BP 100/64
[2020-12-16] MEDS: QUEtiapine FUMARATE 200 MG TABLET PO SCH ×2 (16:29→20:16)
[2020-12-16 17:12] VITALS: BP 114/79
[2020-12-16] MEDS: CloZAPine 100 MG TABLET PO SCH (20:16)
[2020-12-17] MEDS: LORazepam 2 MG TABLET PO PRN ×3 (00:02→16:45)
[2020-12-17 00:14] VITALS: BP 104/62
[2020-12-17] MEDS: CloZAPine 25 MG TABLET PO SCH (08:02)
[2020-12-17] MEDS: PALIPERIDONE 6 MG ER TABLET PO SCH ×2 (08:02→20:09)
[2020-12-17] MEDS: THIAMINE 100 MG TABLET PO SCH (08:02)
[2020-12-17] MEDS: MULTIVITAMINS WITH MINERALS, THERAPEUTIC TABLET PO SCH (08:09)
[2020-12-17 09:06] VITALS: BP 104/68
[2020-12-17] MEDS: TOPIRAMATE 100 MG TABLET PO SCH ×2 (12:16→16:08)
[2020-12-17] MEDS: PROPRANOLOL HCL 20 MG TABLET PO SCH ×2 (12:16→16:08)
[2020-12-17] MEDS: QUEtiapine FUMARATE 200 MG TABLET PO SCH ×2 (16:09→20:09)
[2020-12-17 16:10] VITALS: BP 107/65
[2020-12-17] MEDS: CloZAPine 100 MG TABLET PO SCH (20:09)
[2020-12-18 03:06] VITALS: BP 106/72
[2020-12-18] MEDS: LORazepam 2 MG TABLET PO PRN ×3 (03:08→19:06)
[2020-12-18 08:16] VITALS: BP 120/84
[2020-12-18] MEDS ORDERED: LEUPROLIDE ACETATE 7.5 MG KIT IM SCH (09:00)
[2020-12-18] MEDS: CloZAPine 25 MG TABLET PO SCH (10:15)
[2020-12-18] MEDS: THIAMINE 100 MG TABLET PO SCH (10:15)
[2020-12-18] MEDS: MULTIVITAMINS WITH MINERALS, THERAPEUTIC TABLET PO SCH (10:15)
[2020-12-18] MEDS: PALIPERIDONE 6 MG ER TABLET PO SCH ×2 (10:15→20:56)
[2020-12-18] MEDS: PROPRANOLOL HCL 20 MG TABLET PO SCH ×2 (12:05→16:14)
[2020-12-18] MEDS: TOPIRAMATE 100 MG TABLET PO SCH ×2 (12:05→16:14)
[2020-12-18 16:08] VITALS: BP 115/71
[2020-12-18] MEDS: QUEtiapine FUMARATE 200 MG TABLET PO SCH ×2 (16:15→20:58)
[2020-12-18] MEDS: CloZAPine 100 MG TABLET PO SCH (20:56)
[2020-12-19 00:40] VITALS: BP 118/76
[2020-12-19] MEDS: CloZAPine 25 MG TABLET PO SCH (09:10)
[2020-12-19] MEDS: THIAMINE 100 MG TABLET PO SCH (09:10)
[2020-12-19] MEDS: PALIPERIDONE 6 MG ER TABLET PO SCH ×2 (09:10→20:03)
[2020-12-19] MEDS: MULTIVITAMINS WITH MINERALS, THERAPEUTIC TABLET PO SCH (09:10)
[2020-12-19 09:29] VITALS: BP 133/86
[2020-12-19] MEDS: LORazepam 2 MG TABLET PO PRN ×2 (10:57→19:18)
[2020-12-19] MEDS: PROPRANOLOL HCL 20 MG TABLET PO SCH ×2 (12:21→16:17)
[2020-12-19] MEDS: TOPIRAMATE 100 MG TABLET PO SCH ×2 (12:21→16:17)
[2020-12-19 16:08] VITALS: BP 110/77
[2020-12-19] MEDS: QUEtiapine FUMARATE 200 MG TABLET PO SCH ×2 (16:17→20:03)
[2020-12-19] MEDS: CloZAPine 100 MG TABLET PO SCH (20:03)
[2020-12-20 00:26] VITALS: BP 118/73
[2020-12-20] MEDS: LORazepam 2 MG TABLET PO PRN ×3 (01:33→21:13)
[2020-12-20 07:49] LABS: BASOPHILS % (AUTO) 0.8 % (0.0-2.0); EOSINOPHILS % (AUTO) 6.4 % (1.0-6.0); HEMOGLOBIN 12.2 g/dL (13.5-17.5); LYMPHOCYTES # (AUTO) 1.9 K/uL (1.0-4.8); LYMPHOCYTES % (AUTO) 22.3 % (22.0-44.0); MEAN CORPUSCULAR HEMOGLOBIN 30.5 pg (26.0-34.0); MEAN CORPUSCULAR HGB CONC 33.1 G/dL (31.0-37.0); MEAN CORPUSCULAR VOLUME 92 fL (80-100); MONOCYTES # (AUTO) 0.9 K/uL (0.1-1.0); MONOCYTES % (AUTO) 10.4 % (2.0-9.0); NEUTROPHILS # (AUTO) 5.1 K/uL (1.8-7.7); NEUTROPHILS % (AUTO) 60.1 % (40.0-70.0); PLATELET COUNT (AUTO) 334 K/uL (150-450); RED BLOOD CELL COUNT(AUTO) 4.02 MIL/uL (4.50-5.90); RED CELL DISTRIBUTION WIDTH 14.2 % (11.5-14.5)
[2020-12-20 08:01] LABS: COVID AG,FIA SOURCE NASOPHARYNGEAL
[2020-12-20 08:12] VITALS: BP 116/79
[2020-12-20] MEDS: CloZAPine 25 MG TABLET PO SCH (09:41)
[2020-12-20] MEDS: MULTIVITAMINS WITH MINERALS, THERAPEUTIC TABLET PO SCH (09:41)
[2020-12-20] MEDS: PALIPERIDONE 6 MG ER TABLET PO SCH ×2 (09:41→20:36)
[2020-12-20] MEDS: THIAMINE 100 MG TABLET PO SCH (09:42)
[2020-12-20] MEDS: PROPRANOLOL HCL 20 MG TABLET PO SCH ×2 (13:32→16:27)
[2020-12-20] MEDS: TOPIRAMATE 100 MG TABLET PO SCH ×2 (13:32→16:28)
[2020-12-20] MEDS: QUEtiapine FUMARATE 200 MG TABLET PO SCH ×2 (16:28→20:09)
[2020-12-20 17:15] VITALS: BP 117/78
[2020-12-20] MEDS: CloZAPine 100 MG TABLET PO SCH (20:08)
[2020-12-21 00:51] VITALS: BP 102/67
[2020-12-21] MEDS: DiphenhydrAMINE HCL 50 MG CAPSULE PO PRN ×4 (08:54→20:56)
[2020-12-21] MEDS: MULTIVITAMINS WITH MINERALS, THERAPEUTIC TABLET PO SCH (08:54)
[2020-12-21] MEDS: CloZAPine 25 MG TABLET PO SCH (08:54)
[2020-12-21] MEDS: QUEtiapine FUMARATE 100 MG TABLET PO PRN ×2 (08:54→12:55)
[2020-12-21] MEDS: THIAMINE 100 MG TABLET PO SCH (08:54)
[2020-12-21] MEDS: LORazepam 2 MG TABLET PO PRN ×4 (08:55→20:56)
[2020-12-21 09:09] VITALS: BP 117/78
[2020-12-21] MEDS: PALIPERIDONE 6 MG ER TABLET PO SCH ×2 (09:55→20:56)
[2020-12-21] MEDS: TOPIRAMATE 100 MG TABLET PO SCH ×2 (12:18→16:45)
[2020-12-21] MEDS: ChlorproMAZINE HCL 100 MG TABLET PO PRN ×2 (12:18→16:45)
[2020-12-21] MEDS: PROPRANOLOL HCL 20 MG TABLET PO SCH ×2 (12:18→16:45)
[2020-12-21 16:09] VITALS: BP 126/86
[2020-12-21] MEDS: QUEtiapine FUMARATE 200 MG TABLET PO SCH ×2 (16:45→20:56)
[2020-12-21] MEDS: CloZAPine 100 MG TABLET PO SCH (20:56)
[2020-12-22 05:30] VITALS: BP 124/89
[2020-12-22] MEDS: LORazepam 2 MG TABLET PO PRN ×3 (07:11→18:35)
[2020-12-22] MEDS: MULTIVITAMINS WITH MINERALS, THERAPEUTIC TABLET PO SCH (08:34)
[2020-12-22] MEDS: PALIPERIDONE 6 MG ER TABLET PO SCH ×2 (08:34→21:05)
[2020-12-22] MEDS: THIAMINE 100 MG TABLET PO SCH (08:34)
[2020-12-22] MEDS: CloZAPine 25 MG TABLET PO SCH (08:35)
[2020-12-22] MEDS: DiphenhydrAMINE HCL 50 MG CAPSULE PO PRN ×3 (08:35→21:05)
[2020-12-22 08:36] VITALS: BP 119/84
[2020-12-22] MEDS: PETROLATUM,WHITE 28 GM JELLY TP PRN (11:15)
[2020-12-22] MEDS: PROPRANOLOL HCL 20 MG TABLET PO SCH ×2 (12:38→16:29)
[2020-12-22] MEDS: TOPIRAMATE 100 MG TABLET PO SCH ×2 (12:38→16:29)
[2020-12-22 16:14] VITALS: BP 104/67
[2020-12-22] MEDS: QUEtiapine FUMARATE 100 MG TABLET PO PRN (16:29)
[2020-12-22] MEDS: QUEtiapine FUMARATE 200 MG TABLET PO SCH ×2 (16:29→21:04)
[2020-12-22] MEDS: ChlorproMAZINE HCL 100 MG TABLET PO PRN ×2 (16:29→21:05)
[2020-12-22] MEDS: CloZAPine 100 MG TABLET PO SCH (21:04)
[2020-12-23 04:24] VITALS: BP 111/80
[2020-12-23 08:43] VITALS: BP 119/67
[2020-12-23] MEDS: CloZAPine 25 MG TABLET PO SCH (09:47)
[2020-12-23] MEDS: MULTIVITAMINS WITH MINERALS, THERAPEUTIC TABLET PO SCH (09:47)
[2020-12-23] MEDS: THIAMINE 100 MG TABLET PO SCH (09:47)
[2020-12-23] MEDS: PALIPERIDONE 6 MG ER TABLET PO SCH ×2 (09:47→20:37)
[2020-12-23] MEDS: PROPRANOLOL HCL 20 MG TABLET PO SCH ×2 (12:56→16:15)
[2020-12-23] MEDS: TOPIRAMATE 100 MG TABLET PO SCH ×2 (12:56→16:15)
[2020-12-23] MEDS: QUEtiapine FUMARATE 200 MG TABLET PO SCH ×2 (16:15→20:38)
[2020-12-23] MEDS: LORazepam 2 MG TABLET PO PRN ×2 (16:15→20:38)
[2020-12-23] MEDS: ChlorproMAZINE HCL 100 MG TABLET PO PRN ×2 (16:15→20:38)
[2020-12-23 16:33] VITALS: BP 111/71
[2020-12-23] MEDS: DiphenhydrAMINE HCL 50 MG CAPSULE PO PRN ×2 (16:44→20:50)
[2020-12-23] MEDS: QUEtiapine FUMARATE 100 MG TABLET PO PRN (16:44)
[2020-12-23] MEDS: CloZAPine 100 MG TABLET PO SCH (20:37)
[2020-12-24 00:23] VITALS: BP 109/65
[2020-12-24] MEDS: MULTIVITAMINS WITH MINERALS, THERAPEUTIC TABLET PO SCH (08:14)
[2020-12-24] MEDS: LORazepam 2 MG TABLET PO PRN ×2 (08:14→20:50)
[2020-12-24] MEDS: THIAMINE 100 MG TABLET PO SCH (08:15)
[2020-12-24] MEDS: CloZAPine 25 MG TABLET PO SCH (08:15)
[2020-12-24] MEDS: PALIPERIDONE 6 MG ER TABLET PO SCH ×2 (08:15→20:50)
[2020-12-24 08:35] VITALS: BP 127/84
[2020-12-24] MEDS ORDERED: LEUPROLIDE ACETATE 7.5 MG KIT IM SCH (09:00)
[2020-12-24] MEDS: PROPRANOLOL HCL 20 MG TABLET PO SCH ×2 (12:33→16:06)
[2020-12-24] MEDS: TOPIRAMATE 100 MG TABLET PO SCH ×2 (12:33→16:06)
[2020-12-24] MEDS: DiphenhydrAMINE HCL 50 MG CAPSULE PO PRN (16:06)
[2020-12-24] MEDS: ChlorproMAZINE HCL 100 MG TABLET PO PRN (16:06)
[2020-12-24 16:17] VITALS: BP 117/80
[2020-12-24] MEDS: QUEtiapine FUMARATE 300 MG TABLET PO SCH (17:04)
[2020-12-24] MEDS: CloZAPine 100 MG TABLET PO SCH (20:50)
[2020-12-24] MEDS: QUEtiapine FUMARATE 100 MG TABLET PO PRN (20:50)
[2020-12-25 04:23] VITALS: BP 132/88
[2020-12-25] MEDS: CloZAPine 100 MG TABLET PO SCH ×2 (08:04→20:27)
[2020-12-25] MEDS: QUEtiapine FUMARATE 300 MG TABLET PO SCH ×2 (08:04→16:23)
[2020-12-25] MEDS: MULTIVITAMINS WITH MINERALS, THERAPEUTIC TABLET PO SCH (08:04)
[2020-12-25] MEDS: PALIPERIDONE 6 MG ER TABLET PO SCH ×2 (08:04→20:27)
[2020-12-25] MEDS: THIAMINE 100 MG TABLET PO SCH (08:04)
[2020-12-25] MEDS: LORazepam 2 MG TABLET PO PRN ×3 (08:05→20:28)
[2020-12-25 09:19] VITALS: BP 100/69
[2020-12-25] MEDS: TOPIRAMATE 100 MG TABLET PO SCH ×2 (12:44→16:23)
[2020-12-25] MEDS: PROPRANOLOL HCL 20 MG TABLET PO SCH ×2 (12:44→16:23)
[2020-12-25 16:11] VITALS: BP 121/84
[2020-12-25] MEDS: ChlorproMAZINE HCL 100 MG TABLET PO PRN (16:23)
[2020-12-25] MEDS: DiphenhydrAMINE HCL 50 MG CAPSULE PO PRN ×2 (16:23→20:27)
[2020-12-25] MEDS: QUEtiapine FUMARATE 100 MG TABLET PO PRN (20:28)
[2020-12-26 00:45] VITALS: BP 110/76
[2020-12-26 08:32] VITALS: BP 118/76
[2020-12-26] MEDS: CloZAPine 100 MG TABLET PO SCH ×2 (08:55→20:36)
[2020-12-26] MEDS: PALIPERIDONE 6 MG ER TABLET PO SCH ×2 (08:55→20:36)
[2020-12-26] MEDS: MULTIVITAMINS WITH MINERALS, THERAPEUTIC TABLET PO SCH (08:55)
[2020-12-26] MEDS: THIAMINE 100 MG TABLET PO SCH (08:55)
[2020-12-26] MEDS: QUEtiapine FUMARATE 300 MG TABLET PO SCH ×2 (08:55→16:21)
[2020-12-26] MEDS: TOPIRAMATE 100 MG TABLET PO SCH ×2 (12:20→16:21)
[2020-12-26] MEDS: PROPRANOLOL HCL 20 MG TABLET PO SCH ×2 (12:21→16:21)
[2020-12-26] MEDS: LORazepam 2 MG TABLET PO PRN ×2 (12:21→16:21)
[2020-12-26 16:09] VITALS: BP 97/64
[2020-12-26] MEDS: ChlorproMAZINE HCL 100 MG TABLET PO PRN (16:21)
[2020-12-26] MEDS: DiphenhydrAMINE HCL 50 MG CAPSULE PO PRN (16:42)
[2020-12-27 00:53] VITALS: BP 126/75
[2020-12-27] MEDS: LORazepam 2 MG TABLET PO PRN ×3 (06:11→20:41)
[2020-12-27 08:39] VITALS: BP 110/77
[2020-12-27] MEDS: PALIPERIDONE 6 MG ER TABLET PO SCH ×2 (08:45→20:41)
[2020-12-27] MEDS: QUEtiapine FUMARATE 300 MG TABLET PO SCH ×2 (08:45→16:16)
[2020-12-27] MEDS: CloZAPine 100 MG TABLET PO SCH ×2 (08:45→20:41)
[2020-12-27] MEDS: MULTIVITAMINS WITH MINERALS, THERAPEUTIC TABLET PO SCH (08:45)
[2020-12-27] MEDS: THIAMINE 100 MG TABLET PO SCH (08:45)
[2020-12-27] MEDS: PROPRANOLOL HCL 20 MG TABLET PO SCH ×2 (12:21→16:16)
[2020-12-27] MEDS: TOPIRAMATE 100 MG TABLET PO SCH ×2 (12:21→16:16)
[2020-12-27] MEDS: DiphenhydrAMINE HCL 50 MG CAPSULE PO PRN (16:16)
[2020-12-27] MEDS: ChlorproMAZINE HCL 100 MG TABLET PO PRN (16:16)
[2020-12-27 16:22] VITALS: BP 100/73
[2020-12-28 05:50] VITALS: BP 99/61
[2020-12-28 07:23] LABS: BASOPHILS % (AUTO) 0.4 % (0.0-2.0); EOSINOPHILS % (AUTO) 4.8 % (1.0-6.0); HEMATOCRIT 40.1 % (41-53); LYMPHOCYTES # (AUTO) 1.8 K/uL (1.0-4.8); LYMPHOCYTES % (AUTO) 15.1 % (22.0-44.0); MEAN CORPUSCULAR HEMOGLOBIN 30.1 pg (26.0-34.0); MEAN CORPUSCULAR HGB CONC 32.4 G/dL (31.0-37.0); MEAN CORPUSCULAR VOLUME 93 fL (80-100); MONOCYTES # (AUTO) 0.8 K/uL (0.1-1.0); MONOCYTES % (AUTO) 6.8 % (2.0-9.0); NEUTROPHILS # (AUTO) 8.5 K/uL (1.8-7.7); NEUTROPHILS % (AUTO) 72.9 % (40.0-70.0); PLATELET COUNT (AUTO) 313 K/uL (150-450); RED BLOOD CELL COUNT(AUTO) 4.31 MIL/uL (4.50-5.90); RED CELL DISTRIBUTION WIDTH 14.2 % (11.5-14.5)
[2020-12-28] MEDS: QUEtiapine FUMARATE 300 MG TABLET PO SCH ×2 (08:07→16:53)
[2020-12-28] MEDS: MULTIVITAMINS WITH MINERALS, THERAPEUTIC TABLET PO SCH (08:07)
[2020-12-28] MEDS: LORazepam 2 MG TABLET PO PRN (08:07)
[2020-12-28] MEDS: CloZAPine 100 MG TABLET PO SCH ×2 (08:07→20:18)
[2020-12-28] MEDS: THIAMINE 100 MG TABLET PO SCH (08:07)
[2020-12-28 08:39] VITALS: BP 104/71
[2020-12-28] MEDS: PALIPERIDONE 6 MG ER TABLET PO SCH ×2 (08:46→20:18)
[2020-12-28] MEDS: TOPIRAMATE 100 MG TABLET PO SCH ×2 (13:03→16:52)
[2020-12-28] MEDS: PROPRANOLOL HCL 20 MG TABLET PO SCH ×2 (13:03→16:53)
[2020-12-28 16:08] VITALS: BP 110/73
[2020-12-29 02:09] VITALS: BP 110/74
[2020-12-29 08:37] VITALS: BP 111/73
[2020-12-29] MEDS: QUEtiapine FUMARATE 300 MG TABLET PO SCH ×2 (08:41→17:18)
[2020-12-29] MEDS: MULTIVITAMINS WITH MINERALS, THERAPEUTIC TABLET PO SCH (08:41)
[2020-12-29] MEDS: PALIPERIDONE 6 MG ER TABLET PO SCH ×2 (08:41→20:24)
[2020-12-29] MEDS: CloZAPine 100 MG TABLET PO SCH ×2 (08:41→20:24)
[2020-12-29] MEDS: THIAMINE 100 MG TABLET PO SCH (08:41)
[2020-12-29] MEDS: LORazepam 2 MG TABLET PO PRN ×2 (08:42→12:53)
[2020-12-29] MEDS: ChlorproMAZINE HCL 100 MG TABLET PO PRN (10:11)
[2020-12-29] MEDS: TOPIRAMATE 100 MG TABLET PO SCH ×2 (12:16→17:17)
[2020-12-29] MEDS: PROPRANOLOL HCL 20 MG TABLET PO SCH ×2 (12:16→17:18)
[2020-12-29 16:18] VITALS: BP 111/70
[2020-12-30 05:56] VITALS: BP 104/67
[2020-12-30 08:00] VITALS: BP 102/57
[2020-12-30] MEDS: THIAMINE 100 MG TABLET PO SCH (08:34)
[2020-12-30] MEDS: PALIPERIDONE 6 MG ER TABLET PO SCH (08:34)
[2020-12-30] MEDS: QUEtiapine FUMARATE 300 MG TABLET PO SCH (08:34)
[2020-12-30] MEDS: CloZAPine 100 MG TABLET PO SCH (08:34)
[2020-12-30] MEDS: LORazepam 2 MG TABLET PO PRN ×2 (08:34→13:57)
[2020-12-30] MEDS: MULTIVITAMINS WITH MINERALS, THERAPEUTIC TABLET PO SCH (08:34)
[2020-12-30] MEDS: PROPRANOLOL HCL 20 MG TABLET PO SCH (12:36)
[2020-12-30] MEDS: TOPIRAMATE 100 MG TABLET PO SCH (12:36)
[2020-12-30] MEDS ORDERED: CLOZ100T32 PO ×2 (12:43)
[2020-12-30] MEDS ORDERED: QUET300T2 PO (12:46)
[2020-12-30] MEDS ORDERED: TOPI100T37 PO (12:46)
[2020-12-30] MEDS ORDERED: PALI6TAB15 PO (12:46)
[2020-12-30] MEDS ORDERED: PROP20TA18 PO (12:46)
== END 2020-12-30 15:00 | disposition home or self-care (01) | DRG 885 ==
LOC: B2X 03:00 → B3A 12-20 20:47
PROVIDERS: ADMIT Psychiatry & Neurology Child & Adolescent Psychiatry; ATTEND Psychiatry & Neurology Child & Adolescent Psychiatry
DX: F25.1 Schizoaffective disorder, depressive type (principal); R45.851 Suicidal ideations; I95.9 Hypotension, unspecified; D64.9 Anemia, unspecified; Z20.822 Contact with and (suspected) exposure to COVID-19; Z59.0 Homelessness; D72.829 Elevated white blood cell count, unspecified; F41.1 Generalized anxiety disorder; G44.209 Tension-type headache, unspecified, not intractable; J30.9 Allergic rhinitis, unspecified
CPT/HCPCS: 80048; 80061; 84443; 85025; 87081; 90732; J9217; Q0162

== ENCOUNTER 2020-12-31 13:32 | Emergency (ER) | payer MEDICARE, OTHER ==
[~2020-12-31] VITALS: Ht 177.8 cm; Wt 75.0 kg
[~2020-12-31 13:32] MED LIST: CLOZ100T32 PO; PALI6TAB15 PO; PROP20TA18 PO; QUET300T2 PO; TOPI100T37 PO
[2020-12-31 15:09] LABS: COVID AG,FIA SOURCE NASOPHARYNGEAL
[2020-12-31 16:18] VITALS: BP 134/81
== END 2020-12-31 17:56 | disposition home or self-care (01) ==
LOC: EMS 14:03
DX: J02.9 Acute pharyngitis, unspecified (principal); F25.9 Schizoaffective disorder, unspecified; Z20.822 Contact with and (suspected) exposure to COVID-19; Z79.899 Other long term (current) drug therapy
CPT/HCPCS: 99283

== ENCOUNTER 2021-01-10 13:24 | Inpatient (IN) | payer MEDICARE, MEDICAID ==
[~2021-01-10] VITALS: Ht 175.3 cm; Wt 98.4 kg
[2021-01-10 17:11] LABS: GLUCOMETER DEV NAME(LOC) POC.BV
[2021-01-10 18:14] VITALS: BP 124/85
[2021-01-11 01:46] VITALS: BP 119/83
[2021-01-11] MEDS: HALOPERIDOL 5 MG TABLET PO PRN ×2 (08:12→12:36)
[2021-01-11] MEDS: LORazepam 2 MG TABLET PO PRN ×2 (08:12→12:36)
[2021-01-11 08:31] VITALS: BP 122/82
[2021-01-11] MEDS ORDERED: ALBUTEROL SULFATE HFA 90 MCG/PUFF 8 GM INHALER IH PRN (11:45)
[2021-01-11] MEDS ORDERED: CloNIDine HCL 0.1 MG TABLET PO PRN (11:45)
[2021-01-11] MEDS ORDERED: MAGNESIUM HYDROXIDE SUSPENSION 30 ML UDCUP PO PRN (11:45)
[2021-01-11] MEDS ORDERED: ONDANSETRON HCL 4 MG TABLET PO PRN (11:45)
[2021-01-11] MEDS ORDERED: PETROLATUM,WHITE 28 GM JELLY TP PRN (11:45)
[2021-01-11] MEDS ORDERED: GuaiFENesin/D-METHORPHAN [SUGAR-FREE] 200-20MG/10 ML SYRUP UDCUP PO PRN (11:45)
[2021-01-11] MEDS ORDERED: DOCUSATE SODIUM 100 MG CAPSULE PO PRN (11:45)
[2021-01-11] MEDS ORDERED: LOPERAMIDE HCL 2 MG CAPSULE PO PRN (11:45)
[2021-01-11] MEDS: IBUPROFEN 400 MG TABLET PO PRN (12:36)
[2021-01-11 13:31] LABS: BASOPHILS % (AUTO) 0.7 % (0.0-2.0); EOSINOPHILS % (AUTO) 3.7 % (1.0-6.0); HEMATOCRIT 38.2 % (41-53); HEMOGLOBIN 12.6 g/dL (13.5-17.5); LYMPHOCYTES # (AUTO) 2.1 K/uL (1.0-4.8); LYMPHOCYTES % (AUTO) 24.3 % (22.0-44.0); MEAN CORPUSCULAR HEMOGLOBIN 30.2 pg (26.0-34.0); MEAN CORPUSCULAR VOLUME 92 fL (80-100); MONOCYTES # (AUTO) 0.6 K/uL (0.1-1.0); MONOCYTES % (AUTO) 7.4 % (2.0-9.0); NEUTROPHILS # (AUTO) 5.5 K/uL (1.8-7.7); NEUTROPHILS % (AUTO) 63.9 % (40.0-70.0); PLATELET COUNT (AUTO) 333 K/uL (150-450); RED BLOOD CELL COUNT(AUTO) 4.17 MIL/uL (4.50-5.90); RED CELL DISTRIBUTION WIDTH 13.9 % (11.5-14.5)
[2021-01-11] MEDS: PALIPERIDONE 6 MG ER TABLET PO SCH ×2 (13:48→20:48)
[2021-01-11 16:14] VITALS: BP 106/72
[2021-01-11] MEDS: QUEtiapine FUMARATE 300 MG TABLET PO SCH (16:30)
[2021-01-11] MEDS: TOPIRAMATE 100 MG TABLET PO SCH (16:31)
[2021-01-11] MEDS: CloZAPine 100 MG TABLET PO SCH (20:48)
[2021-01-12 05:57] VITALS: BP 116/70
[2021-01-12 08:05] VITALS: BP 94/60
[2021-01-12 08:09] LABS: HEMOGLOBIN A1C 5.4 % (3.8-5.6)
[2021-01-12] MEDS: CloZAPine 100 MG TABLET PO SCH ×2 (08:13→20:25)
[2021-01-12] MEDS: QUEtiapine FUMARATE 300 MG TABLET PO SCH ×2 (08:13→16:35)
[2021-01-12] MEDS: TOPIRAMATE 100 MG TABLET PO SCH ×2 (08:15→16:35)
[2021-01-12 08:20] LABS: ALANINE AMINOTRANSFERASE 29 U/L (12-78); ALBUMIN 3.4 g/dL (3.4-5.0); ALKALINE PHOSPHATASE 101 U/L (46-116); ANION GAP 10 mmol/L (8-16); ASPARTATE AMINOTRANSFERASE 17 U/L (15-37); BILIRUBIN,TOTAL 0.2 mg/dL (0.1-1.0); CALCIUM, TOTAL 8.8 mg/dL (8.8-10.5); CARBON DIOXIDE 22 mmol/L (22-29); CHLORIDE 109 mmol/L (98-107); CHOL/HDL RATIO 3.4 (4.2-7.3); CHOLESTEROL 164 mg/dL (131-200); CREATININE 0.76 mg/dL (0.60-1.30); FREE T4 (FREE THYROXINE) 0.77 ng/dL (0.76-1.46); GLOMERULAR FILTR. RATE CALC > 60 mL/min (>60); GLUCOSE,RANDOM 93 mg/dL (70-110); HDL CHOLESTEROL 48 mg/dL (40-60); LDL CHOL (CALC.) 82 mg/dL (0-130); POTASSIUM 3.9 mmol/L (3.5-5.1); SODIUM SERUM 141 mmol/L (136-145); THYROID STIMULATING HORMONE 1.66 uIU/mL (0.36-3.74); TOTAL PROTEIN, SERUM 6.8 g/dL (6.4-8.2); TRIGLYCERIDES 168 mg/dL (15-150); UREA NITROGEN, BLOOD 16 mg/dL (7-18)
[2021-01-12] MEDS: PALIPERIDONE 6 MG ER TABLET PO SCH ×2 (08:47→20:25)
[2021-01-12] MEDS: ACETAMINOPHEN 325 MG TABLET PO PRN (13:31)
[2021-01-12 16:12] VITALS: BP 104/70
[2021-01-13 00:45] VITALS: BP 102/69
[2021-01-13] MEDS: QUEtiapine FUMARATE 300 MG TABLET PO SCH ×2 (08:44→16:46)
[2021-01-13] MEDS: TOPIRAMATE 100 MG TABLET PO SCH ×2 (08:44→16:46)
[2021-01-13] MEDS: HALOPERIDOL 5 MG TABLET PO PRN (08:44)
[2021-01-13] MEDS: CloZAPine 100 MG TABLET PO SCH ×2 (08:44→20:49)
[2021-01-13] MEDS: PALIPERIDONE 6 MG ER TABLET PO SCH ×2 (08:44→20:48)
[2021-01-13] MEDS: LORazepam 2 MG TABLET PO PRN ×3 (08:44→18:40)
[2021-01-13] MEDS: IBUPROFEN 400 MG TABLET PO PRN (10:38)
[2021-01-13 10:53] VITALS: BP 106/74
[2021-01-13 16:12] VITALS: BP 102/64
[2021-01-13] MEDS: ZOLPIDEM TARTRATE 10 MG TABLET PO PRN (20:50)
[2021-01-14 05:18] VITALS: BP 106/67
[2021-01-14] MEDS: LORazepam 2 MG TABLET PO PRN ×3 (08:15→21:00)
[2021-01-14] MEDS: HALOPERIDOL 5 MG TABLET PO PRN ×2 (08:15→13:00)
[2021-01-14 08:36] VITALS: BP 108/62
[2021-01-14] MEDS: QUEtiapine FUMARATE 300 MG TABLET PO SCH ×2 (09:09→17:00)
[2021-01-14] MEDS: TOPIRAMATE 100 MG TABLET PO SCH ×2 (09:09→17:00)
[2021-01-14] MEDS: CloZAPine 100 MG TABLET PO SCH ×2 (09:09→21:00)
[2021-01-14] MEDS: PALIPERIDONE 6 MG ER TABLET PO SCH ×2 (09:09→21:00)
[2021-01-14] MEDS: ACETAMINOPHEN 325 MG TABLET PO PRN (10:18)
[2021-01-14] MEDS: IBUPROFEN 400 MG TABLET PO PRN (13:53)
[2021-01-14 16:17] VITALS: BP 115/78
[2021-01-14] MEDS ORDERED: DiphenhydrAMINE HCL 50 MG/ML VIAL ONE (16:45)
[2021-01-14] MEDS ORDERED: HALOPERIDOL LACTATE 5 MG/ML VIAL ONE (16:45)
[2021-01-14] MEDS ORDERED: LORazepam 2 MG/ML VIAL ONE (16:45)
[2021-01-14] MEDS ORDERED: LORazepam 2 MG/ML VIAL IM ONE (17:15)
[2021-01-14] MEDS ORDERED: DiphenhydrAMINE HCL 50 MG/ML VIAL IM ONE (17:15)
[2021-01-14] MEDS ORDERED: HALOPERIDOL LACTATE 5 MG/ML VIAL IM ONE (17:15)
[2021-01-15 05:53] VITALS: BP 99/71
[2021-01-15] MEDS: LORazepam 2 MG TABLET PO PRN ×2 (08:00→17:17)
[2021-01-15 08:46] VITALS: BP 105/67
[2021-01-15] MEDS: TOPIRAMATE 100 MG TABLET PO SCH ×2 (08:58→17:17)
[2021-01-15] MEDS: CloZAPine 100 MG TABLET PO SCH ×2 (08:58→19:10)
[2021-01-15] MEDS: QUEtiapine FUMARATE 300 MG TABLET PO SCH ×2 (08:58→17:17)
[2021-01-15] MEDS: PALIPERIDONE 6 MG ER TABLET PO SCH ×2 (08:58→19:10)
[2021-01-15 16:16] VITALS: BP 103/69
[2021-01-15] MEDS: ACETAMINOPHEN 325 MG TABLET PO PRN (17:17)
[2021-01-16 02:10] VITALS: BP 97/62
[2021-01-16 08:00] VITALS: BP 105/74
[2021-01-16] MEDS: CloZAPine 100 MG TABLET PO SCH ×2 (08:56→20:39)
[2021-01-16] MEDS: LORazepam 2 MG TABLET PO PRN ×3 (08:57→20:40)
[2021-01-16] MEDS: PALIPERIDONE 6 MG ER TABLET PO SCH ×2 (08:57→20:39)
[2021-01-16] MEDS: TOPIRAMATE 100 MG TABLET PO SCH ×2 (08:57→16:26)
[2021-01-16] MEDS: QUEtiapine FUMARATE 300 MG TABLET PO SCH ×2 (08:57→16:26)
[2021-01-16 16:21] VITALS: BP 106/70
[2021-01-16] MEDS: HALOPERIDOL 5 MG TABLET PO PRN (16:27)
[2021-01-16] MEDS: ZOLPIDEM TARTRATE 10 MG TABLET PO PRN (20:40)
[2021-01-17 04:58] VITALS: BP 101/71
[2021-01-17] MEDS: HALOPERIDOL 5 MG TABLET PO PRN ×2 (08:15→18:58)
[2021-01-17] MEDS: LORazepam 2 MG TABLET PO PRN ×2 (08:15→16:08)
[2021-01-17 08:20] VITALS: BP 129/80
[2021-01-17] MEDS: QUEtiapine FUMARATE 300 MG TABLET PO SCH ×2 (09:24→16:09)
[2021-01-17] MEDS: CloZAPine 100 MG TABLET PO SCH ×2 (09:24→20:38)
[2021-01-17] MEDS: PALIPERIDONE 6 MG ER TABLET PO SCH ×2 (09:24→20:38)
[2021-01-17] MEDS: TOPIRAMATE 100 MG TABLET PO SCH ×2 (09:24→16:09)
[2021-01-17] MEDS: OMEGA-3/DHA/EPA/FISH OIL 1,000 MG CAPSULE PO SCH (13:13)
[2021-01-17 16:52] VITALS: BP 110/60
[2021-01-17] MEDS: ACETAMINOPHEN 325 MG TABLET PO PRN (18:58)
[2021-01-18 06:39] VITALS: BP_SYST 111; BP_SYST 117; BP_DIAS 71; BP_DIAS 77
[2021-01-18 07:16] LABS: BASOPHILS % (AUTO) 1.1 % (0.0-2.0); EOSINOPHILS % (AUTO) 7.1 % (1.0-6.0); HEMATOCRIT 39.1 % (41-53); HEMOGLOBIN 12.7 g/dL (13.5-17.5); LYMPHOCYTES # (AUTO) 1.5 K/uL (1.0-4.8); LYMPHOCYTES % (AUTO) 22.7 % (22.0-44.0); MEAN CORPUSCULAR HEMOGLOBIN 29.8 pg (26.0-34.0); MEAN CORPUSCULAR HGB CONC 32.5 G/dL (31.0-37.0); MEAN CORPUSCULAR VOLUME 92 fL (80-100); MONOCYTES # (AUTO) 0.6 K/uL (0.1-1.0); MONOCYTES % (AUTO) 8.6 % (2.0-9.0); NEUTROPHILS # (AUTO) 4.1 K/uL (1.8-7.7); NEUTROPHILS % (AUTO) 60.5 % (40.0-70.0); PLATELET COUNT (AUTO) 359 K/uL (150-450); RED BLOOD CELL COUNT(AUTO) 4.27 MIL/uL (4.50-5.90); RED CELL DISTRIBUTION WIDTH 13.9 % (11.5-14.5)
[2021-01-18] MEDS: LORazepam 2 MG TABLET PO PRN ×3 (08:15→16:18)
[2021-01-18] MEDS: HALOPERIDOL 5 MG TABLET PO PRN ×3 (08:15→16:18)
[2021-01-18] MEDS: QUEtiapine FUMARATE 300 MG TABLET PO SCH ×2 (09:38→16:19)
[2021-01-18] MEDS: OMEGA-3/DHA/EPA/FISH OIL 1,000 MG CAPSULE PO SCH (09:38)
[2021-01-18] MEDS: TOPIRAMATE 100 MG TABLET PO SCH ×2 (09:38→16:19)
[2021-01-18] MEDS: CloZAPine 100 MG TABLET PO SCH ×2 (09:38→19:47)
[2021-01-18] MEDS: PALIPERIDONE 6 MG ER TABLET PO SCH ×2 (09:38→19:47)
[2021-01-18 10:30] VITALS: BP 107/64
[2021-01-18] MEDS: ACETAMINOPHEN 325 MG TABLET PO PRN (16:19)
[2021-01-18 16:21] VITALS: BP 108/69
[2021-01-19 02:01] VITALS: BP 138/85
[2021-01-19] MEDS ORDERED: LORazepam 1 MG TABLET ONE ×2 (07:54→12:40)
[2021-01-19] MEDS: LORazepam 2 MG TABLET PO PRN ×4 (08:30→20:50)
[2021-01-19] MEDS: HALOPERIDOL 5 MG TABLET PO PRN ×3 (08:30→16:48)
[2021-01-19] MEDS: PALIPERIDONE 6 MG ER TABLET PO SCH ×2 (09:45→20:16)
[2021-01-19] MEDS: QUEtiapine FUMARATE 300 MG TABLET PO SCH ×2 (09:45→16:48)
[2021-01-19] MEDS: TOPIRAMATE 100 MG TABLET PO SCH ×2 (09:45→16:47)
[2021-01-19] MEDS: OMEGA-3/DHA/EPA/FISH OIL 1,000 MG CAPSULE PO SCH (09:45)
[2021-01-19] MEDS: CloZAPine 100 MG TABLET PO SCH ×2 (09:45→20:16)
[2021-01-19 09:52] VITALS: BP 138/89
[2021-01-19 16:08] VITALS: BP 116/75
[2021-01-19] MEDS: ZOLPIDEM TARTRATE 10 MG TABLET PO PRN (20:16)
[2021-01-20 06:41] VITALS: BP 98/61
[2021-01-20] MEDS ORDERED: LORazepam 1 MG TABLET ONE (08:06)
[2021-01-20] MEDS: HALOPERIDOL 5 MG TABLET PO PRN (08:15)
[2021-01-20] MEDS: LORazepam 2 MG TABLET PO PRN ×2 (08:15→16:12)
[2021-01-20 08:18] VITALS: BP 115/63
[2021-01-20] MEDS: CloZAPine 100 MG TABLET PO SCH ×2 (09:01→20:25)
[2021-01-20] MEDS: QUEtiapine FUMARATE 300 MG TABLET PO SCH ×2 (09:01→16:12)
[2021-01-20] MEDS: TOPIRAMATE 100 MG TABLET PO SCH ×2 (09:01→16:12)
[2021-01-20] MEDS: OMEGA-3/DHA/EPA/FISH OIL 1,000 MG CAPSULE PO SCH (09:01)
[2021-01-20] MEDS: PALIPERIDONE 6 MG ER TABLET PO SCH ×2 (09:01→20:24)
[2021-01-20 16:11] VITALS: BP 106/62
[2021-01-20] MEDS: ZOLPIDEM TARTRATE 10 MG TABLET PO PRN (20:24)
[2021-01-21 06:17] VITALS: BP 110/64
[2021-01-21] MEDS: TOPIRAMATE 100 MG TABLET PO SCH ×2 (08:10→16:25)
[2021-01-21] MEDS: CloZAPine 100 MG TABLET PO SCH ×2 (08:10→19:54)
[2021-01-21] MEDS: PALIPERIDONE 6 MG ER TABLET PO SCH ×2 (08:10→19:54)
[2021-01-21] MEDS: OMEGA-3/DHA/EPA/FISH OIL 1,000 MG CAPSULE PO SCH (08:10)
[2021-01-21] MEDS: QUEtiapine FUMARATE 300 MG TABLET PO SCH ×2 (08:10→16:25)
[2021-01-21 08:29] VITALS: BP 101/60
[2021-01-21] MEDS: LORazepam 2 MG TABLET PO PRN ×2 (13:38→16:26)
[2021-01-21 16:13] VITALS: BP 113/74
[2021-01-21] MEDS: ACETAMINOPHEN 325 MG TABLET PO PRN (16:26)
[2021-01-22 06:15] VITALS: BP 91/59
[2021-01-22 08:34] VITALS: BP 104/67
[2021-01-22] MEDS: TOPIRAMATE 100 MG TABLET PO SCH ×2 (09:38→16:43)
[2021-01-22] MEDS: OMEGA-3/DHA/EPA/FISH OIL 1,000 MG CAPSULE PO SCH (09:38)
[2021-01-22] MEDS: CloZAPine 100 MG TABLET PO SCH ×2 (09:38→20:43)
[2021-01-22] MEDS: PALIPERIDONE 6 MG ER TABLET PO SCH ×2 (09:38→20:44)
[2021-01-22] MEDS: QUEtiapine FUMARATE 300 MG TABLET PO SCH ×2 (09:38→16:43)
[2021-01-22 16:09] VITALS: BP 100/66
[2021-01-22] MEDS: LORazepam 2 MG TABLET PO PRN ×2 (16:43→20:44)
[2021-01-22] MEDS: ZOLPIDEM TARTRATE 10 MG TABLET PO PRN (21:03)
[2021-01-23 05:43] VITALS: BP 106/72
[2021-01-23] MEDS: HALOPERIDOL 5 MG TABLET PO PRN (08:30)
[2021-01-23] MEDS: LORazepam 2 MG TABLET PO PRN ×2 (08:30→16:49)
[2021-01-23] MEDS: TOPIRAMATE 100 MG TABLET PO SCH ×2 (09:07→16:49)
[2021-01-23] MEDS: CloZAPine 100 MG TABLET PO SCH ×2 (09:07→20:48)
[2021-01-23] MEDS: OMEGA-3/DHA/EPA/FISH OIL 1,000 MG CAPSULE PO SCH (09:07)
[2021-01-23] MEDS: PALIPERIDONE 6 MG ER TABLET PO SCH ×2 (09:07→20:49)
[2021-01-23] MEDS: QUEtiapine FUMARATE 300 MG TABLET PO SCH ×2 (09:07→16:49)
[2021-01-23 09:23] VITALS: BP 97/61
[2021-01-23 16:13] VITALS: BP 101/67
[2021-01-23] MEDS: ZOLPIDEM TARTRATE 10 MG TABLET PO PRN (20:49)
[2021-01-24 04:50] VITALS: BP 121/81
[2021-01-24 06:51] VITALS: BP 90/59
[2021-01-24] MEDS: LORazepam 2 MG TABLET PO PRN ×3 (08:15→17:09)
[2021-01-24] MEDS: HALOPERIDOL 5 MG TABLET PO PRN ×3 (08:15→20:58)
[2021-01-24 08:23] VITALS: BP 112/73
[2021-01-24] MEDS: QUEtiapine FUMARATE 300 MG TABLET PO SCH ×2 (08:53→17:06)
[2021-01-24] MEDS: PALIPERIDONE 6 MG ER TABLET PO SCH ×2 (08:53→20:57)
[2021-01-24] MEDS: TOPIRAMATE 100 MG TABLET PO SCH ×2 (08:53→17:05)
[2021-01-24] MEDS: OMEGA-3/DHA/EPA/FISH OIL 1,000 MG CAPSULE PO SCH (08:53)
[2021-01-24] MEDS: CloZAPine 100 MG TABLET PO SCH ×2 (08:53→20:58)
[2021-01-24 16:16] VITALS: BP 133/84
[2021-01-25 04:56] VITALS: BP 122/78
[2021-01-25] MEDS: HALOPERIDOL 5 MG TABLET PO PRN ×3 (08:00→16:22)
[2021-01-25] MEDS: LORazepam 2 MG TABLET PO PRN ×3 (08:00→16:22)
[2021-01-25] MEDS: TOPIRAMATE 100 MG TABLET PO SCH ×2 (08:28→16:21)
[2021-01-25] MEDS: OMEGA-3/DHA/EPA/FISH OIL 1,000 MG CAPSULE PO SCH (08:28)
[2021-01-25] MEDS: CloZAPine 100 MG TABLET PO SCH ×2 (08:28→20:49)
[2021-01-25] MEDS: PALIPERIDONE 6 MG ER TABLET PO SCH ×2 (08:28→20:49)
[2021-01-25] MEDS: QUEtiapine FUMARATE 300 MG TABLET PO SCH ×2 (08:28→16:21)
[2021-01-25 08:47] VITALS: BP 103/59
[2021-01-25 16:09] VITALS: BP 106/63
[2021-01-25] MEDS: ZOLPIDEM TARTRATE 10 MG TABLET PO PRN (20:49)
[2021-01-26 06:18] VITALS: BP 109/71
[2021-01-26] MEDS: HALOPERIDOL 5 MG TABLET PO PRN ×3 (08:00→17:57)
[2021-01-26] MEDS: LORazepam 2 MG TABLET PO PRN ×3 (08:00→17:57)
[2021-01-26] MEDS: QUEtiapine FUMARATE 300 MG TABLET PO SCH ×2 (08:51→16:06)
[2021-01-26] MEDS: OMEGA-3/DHA/EPA/FISH OIL 1,000 MG CAPSULE PO SCH (08:51)
[2021-01-26] MEDS: CloZAPine 100 MG TABLET PO SCH ×2 (08:51→20:42)
[2021-01-26] MEDS: TOPIRAMATE 100 MG TABLET PO SCH ×2 (08:51→16:05)
[2021-01-26] MEDS: PALIPERIDONE 6 MG ER TABLET PO SCH ×2 (08:51→20:42)
[2021-01-26 09:11] VITALS: BP 99/60
[2021-01-26 16:30] VITALS: BP 100/66
[2021-01-26] MEDS: ZOLPIDEM TARTRATE 10 MG TABLET PO PRN (20:42)
[2021-01-27 05:56] VITALS: BP 99/58
[2021-01-27] MEDS: HALOPERIDOL 5 MG TABLET PO PRN ×2 (08:15→13:56)
[2021-01-27] MEDS: LORazepam 2 MG TABLET PO PRN ×3 (08:15→18:05)
[2021-01-27] MEDS: CloZAPine 100 MG TABLET PO SCH ×2 (08:51→20:43)
[2021-01-27] MEDS: TOPIRAMATE 100 MG TABLET PO SCH ×2 (08:51→16:31)
[2021-01-27] MEDS: QUEtiapine FUMARATE 300 MG TABLET PO SCH ×2 (08:51→16:31)
[2021-01-27] MEDS: PALIPERIDONE 6 MG ER TABLET PO SCH ×2 (08:51→20:44)
[2021-01-27] MEDS: OMEGA-3/DHA/EPA/FISH OIL 1,000 MG CAPSULE PO SCH (08:51)
[2021-01-27 10:25] VITALS: BP 98/63
[2021-01-27 16:38] VITALS: BP 117/77
[2021-01-27] MEDS: ZOLPIDEM TARTRATE 10 MG TABLET PO PRN (20:44)
[2021-01-28 02:28] VITALS: BP 115/75
[2021-01-28 08:29] VITALS: BP 99/63
[2021-01-28] MEDS: PALIPERIDONE 6 MG ER TABLET PO SCH ×2 (08:40→20:28)
[2021-01-28] MEDS: OMEGA-3/DHA/EPA/FISH OIL 1,000 MG CAPSULE PO SCH (08:40)
[2021-01-28] MEDS: CloZAPine 100 MG TABLET PO SCH ×2 (08:40→20:28)
[2021-01-28] MEDS: TOPIRAMATE 100 MG TABLET PO SCH ×2 (08:40→16:13)
[2021-01-28] MEDS: QUEtiapine FUMARATE 300 MG TABLET PO SCH ×2 (08:40→16:13)
[2021-01-28] MEDS: LORazepam 2 MG TABLET PO PRN ×2 (08:41→14:12)
[2021-01-28] MEDS: HALOPERIDOL 5 MG TABLET PO PRN (14:12)
[2021-01-28] MEDS: IBUPROFEN 400 MG TABLET PO PRN (14:12)
[2021-01-28 16:14] VITALS: BP 126/84
[2021-01-28] MEDS: ZOLPIDEM TARTRATE 10 MG TABLET PO PRN (20:28)
[2021-01-29 05:50] VITALS: BP 92/59
[2021-01-29] MEDS: OMEGA-3/DHA/EPA/FISH OIL 1,000 MG CAPSULE PO SCH (08:58)
[2021-01-29] MEDS: TOPIRAMATE 100 MG TABLET PO SCH ×2 (08:58→16:15)
[2021-01-29] MEDS: PALIPERIDONE 6 MG ER TABLET PO SCH ×2 (08:58→20:18)
[2021-01-29] MEDS: QUEtiapine FUMARATE 300 MG TABLET PO SCH ×2 (08:59→16:15)
[2021-01-29] MEDS: CloZAPine 100 MG TABLET PO SCH ×2 (08:59→20:18)
[2021-01-29] MEDS: LORazepam 2 MG TABLET PO PRN ×3 (09:07→20:18)
[2021-01-29 10:27] VITALS: BP 98/61
[2021-01-29 16:14] VITALS: BP 128/80
[2021-01-29] MEDS: HALOPERIDOL 5 MG TABLET PO PRN (17:19)
[2021-01-29] MEDS: ZOLPIDEM TARTRATE 10 MG TABLET PO PRN (20:18)
[2021-01-30 04:34] VITALS: BP 110/76
[2021-01-30 08:20] VITALS: BP 99/63
[2021-01-30] MEDS: CloZAPine 100 MG TABLET PO SCH ×2 (09:33→20:49)
[2021-01-30] MEDS: TOPIRAMATE 100 MG TABLET PO SCH ×2 (09:33→16:10)
[2021-01-30] MEDS: OMEGA-3/DHA/EPA/FISH OIL 1,000 MG CAPSULE PO SCH (09:33)
[2021-01-30] MEDS: QUEtiapine FUMARATE 300 MG TABLET PO SCH ×2 (09:33→16:10)
[2021-01-30] MEDS: PALIPERIDONE 6 MG ER TABLET PO SCH ×2 (09:33→20:49)
[2021-01-30] MEDS: HALOPERIDOL 5 MG TABLET PO PRN (16:11)
[2021-01-30] MEDS: LORazepam 2 MG TABLET PO PRN (16:11)
[2021-01-30 16:21] VITALS: BP 110/75
[2021-01-30] MEDS: ZOLPIDEM TARTRATE 10 MG TABLET PO PRN (20:49)
[2021-01-31 05:07] VITALS: BP 101/61
[2021-01-31 08:19] VITALS: BP 100/63
[2021-01-31] MEDS: QUEtiapine FUMARATE 300 MG TABLET PO SCH ×2 (09:13→16:15)
[2021-01-31] MEDS: TOPIRAMATE 100 MG TABLET PO SCH ×2 (09:13→16:15)
[2021-01-31] MEDS: PALIPERIDONE 6 MG ER TABLET PO SCH ×2 (09:13→20:30)
[2021-01-31] MEDS: OMEGA-3/DHA/EPA/FISH OIL 1,000 MG CAPSULE PO SCH (09:13)
[2021-01-31] MEDS: CloZAPine 100 MG TABLET PO SCH ×2 (09:13→20:30)
[2021-01-31] MEDS: HALOPERIDOL 5 MG TABLET PO PRN ×2 (12:33→18:09)
[2021-01-31] MEDS: LORazepam 2 MG TABLET PO PRN ×2 (12:33→18:09)
[2021-01-31 16:08] VITALS: BP 121/76
[2021-01-31] MEDS: ACETAMINOPHEN 325 MG TABLET PO PRN (16:56)
[2021-01-31] MEDS: ZOLPIDEM TARTRATE 10 MG TABLET PO PRN (20:59)
[2021-02-01 05:06] VITALS: BP 112/74
[2021-02-01 07:37] LABS: BASOPHILS % (AUTO) 0.8 % (0.0-2.0); EOSINOPHILS % (AUTO) 8.4 % (1.0-6.0); LYMPHOCYTES # (AUTO) 1.7 K/uL (1.0-4.8); LYMPHOCYTES % (AUTO) 26.8 % (22.0-44.0); MEAN CORPUSCULAR HEMOGLOBIN 30.2 pg (26.0-34.0); MEAN CORPUSCULAR HGB CONC 33.4 G/dL (31.0-37.0); MEAN CORPUSCULAR VOLUME 91 fL (80-100); MONOCYTES # (AUTO) 0.6 K/uL (0.1-1.0); MONOCYTES % (AUTO) 10.2 % (2.0-9.0); NEUTROPHILS # (AUTO) 3.3 K/uL (1.8-7.7); NEUTROPHILS % (AUTO) 53.8 % (40.0-70.0); PLATELET COUNT (AUTO) 292 K/uL (150-450); RED BLOOD CELL COUNT(AUTO) 3.97 MIL/uL (4.50-5.90); RED CELL DISTRIBUTION WIDTH 13.6 % (11.5-14.5)
[2021-02-01 08:28] VITALS: BP 114/74
[2021-02-01] MEDS: PALIPERIDONE 6 MG ER TABLET PO SCH ×2 (08:44→20:34)
[2021-02-01] MEDS: TOPIRAMATE 100 MG TABLET PO SCH ×2 (08:45→16:23)
[2021-02-01] MEDS: LORazepam 2 MG TABLET PO PRN ×2 (08:45→16:02)
[2021-02-01] MEDS: HALOPERIDOL 5 MG TABLET PO PRN ×2 (08:45→16:02)
[2021-02-01] MEDS: CloZAPine 100 MG TABLET PO SCH ×2 (08:45→20:34)
[2021-02-01] MEDS: QUEtiapine FUMARATE 300 MG TABLET PO SCH ×2 (08:45→16:23)
[2021-02-01] MEDS: OMEGA-3/DHA/EPA/FISH OIL 1,000 MG CAPSULE PO SCH (08:45)
[2021-02-01 16:34] VITALS: BP 101/66
[2021-02-01] MEDS: ZOLPIDEM TARTRATE 10 MG TABLET PO PRN (20:34)
[2021-02-02 01:20] VITALS: BP 114/64
[2021-02-02 08:30] VITALS: BP 95/60
[2021-02-02] MEDS: QUEtiapine FUMARATE 300 MG TABLET PO SCH ×2 (08:30→16:31)
[2021-02-02] MEDS: PALIPERIDONE 6 MG ER TABLET PO SCH ×2 (08:30→20:51)
[2021-02-02] MEDS: LORazepam 2 MG TABLET PO PRN ×3 (08:30→16:31)
[2021-02-02] MEDS: TOPIRAMATE 100 MG TABLET PO SCH ×2 (08:30→16:31)
[2021-02-02] MEDS: CloZAPine 100 MG TABLET PO SCH ×2 (08:30→20:51)
[2021-02-02] MEDS: OMEGA-3/DHA/EPA/FISH OIL 1,000 MG CAPSULE PO SCH (08:30)
[2021-02-02 10:25] VITALS: BP 111/70
[2021-02-02] MEDS: HALOPERIDOL 5 MG TABLET PO PRN ×2 (11:00→17:55)
[2021-02-02] MEDS: ACETAMINOPHEN 325 MG TABLET PO PRN (11:01)
[2021-02-02 16:10] VITALS: BP 123/82
[2021-02-02] MEDS: ZOLPIDEM TARTRATE 10 MG TABLET PO PRN (20:51)
[2021-02-03 04:58] VITALS: BP 115/74
[2021-02-03 08:27] VITALS: BP 103/62
[2021-02-03] MEDS: CloZAPine 100 MG TABLET PO SCH ×2 (09:32→20:42)
[2021-02-03] MEDS: TOPIRAMATE 100 MG TABLET PO SCH ×2 (09:33→16:16)
[2021-02-03] MEDS: OMEGA-3/DHA/EPA/FISH OIL 1,000 MG CAPSULE PO SCH (09:33)
[2021-02-03] MEDS: PALIPERIDONE 6 MG ER TABLET PO SCH ×2 (09:33→20:42)
[2021-02-03] MEDS: QUEtiapine FUMARATE 300 MG TABLET PO SCH ×2 (09:34→16:16)
[2021-02-03 13:55] VITALS: BP 109/68
[2021-02-03] MEDS: ACETAMINOPHEN 325 MG TABLET PO PRN (13:55)
[2021-02-03] MEDS: LORazepam 2 MG TABLET PO PRN ×2 (13:55→18:13)
[2021-02-03] MEDS: HALOPERIDOL 5 MG TABLET PO PRN ×2 (13:55→18:13)
[2021-02-03 14:55] VITALS: BP 111/69
[2021-02-03 17:34] VITALS: BP 107/76
[2021-02-03] MEDS: ZOLPIDEM TARTRATE 10 MG TABLET PO PRN (20:42)
[2021-02-04 05:34] VITALS: BP 99/59
[2021-02-04] MEDS: OMEGA-3/DHA/EPA/FISH OIL 1,000 MG CAPSULE PO SCH (08:59)
[2021-02-04] MEDS: TOPIRAMATE 100 MG TABLET PO SCH ×2 (08:59→16:21)
[2021-02-04] MEDS: CloZAPine 100 MG TABLET PO SCH ×2 (08:59→20:15)
[2021-02-04] MEDS: QUEtiapine FUMARATE 300 MG TABLET PO SCH ×2 (08:59→16:21)
[2021-02-04] MEDS: HALOPERIDOL 5 MG TABLET PO PRN ×2 (09:00→16:21)
[2021-02-04] MEDS: LORazepam 2 MG TABLET PO PRN ×2 (09:00→16:21)
[2021-02-04] MEDS: PALIPERIDONE 6 MG ER TABLET PO SCH ×2 (09:00→20:15)
[2021-02-04 09:56] VITALS: BP 102/60
[2021-02-04 16:31] VITALS: BP 109/73
[2021-02-04 18:19] VITALS: BP 112/64
[2021-02-04] MEDS: ACETAMINOPHEN 325 MG TABLET PO PRN (18:19)
[2021-02-04] MEDS: ZOLPIDEM TARTRATE 10 MG TABLET PO PRN (20:15)
[2021-02-05 05:46] VITALS: BP 116/71
[2021-02-05 08:18] VITALS: BP 118/76
[2021-02-05] MEDS: OMEGA-3/DHA/EPA/FISH OIL 1,000 MG CAPSULE PO SCH (08:45)
[2021-02-05] MEDS: PALIPERIDONE 6 MG ER TABLET PO SCH ×2 (08:45→20:12)
[2021-02-05] MEDS: QUEtiapine FUMARATE 300 MG TABLET PO SCH ×2 (08:45→16:33)
[2021-02-05] MEDS: TOPIRAMATE 100 MG TABLET PO SCH ×2 (08:45→16:33)
[2021-02-05] MEDS: LORazepam 2 MG TABLET PO PRN ×2 (08:45→16:33)
[2021-02-05] MEDS: HALOPERIDOL 5 MG TABLET PO PRN ×2 (09:07→17:26)
[2021-02-05] MEDS: CloZAPine 100 MG TABLET PO SCH ×2 (09:11→20:12)
[2021-02-05 16:13] VITALS: BP 124/80
[2021-02-05] MEDS: ZOLPIDEM TARTRATE 10 MG TABLET PO PRN (20:12)
[2021-02-06 07:08] VITALS: BP 116/79
[2021-02-06] MEDS: OMEGA-3/DHA/EPA/FISH OIL 1,000 MG CAPSULE PO SCH (08:49)
[2021-02-06] MEDS: CloZAPine 100 MG TABLET PO SCH ×2 (08:49→20:25)
[2021-02-06] MEDS: QUEtiapine FUMARATE 300 MG TABLET PO SCH ×2 (08:49→16:20)
[2021-02-06] MEDS: TOPIRAMATE 100 MG TABLET PO SCH ×2 (08:49→16:21)
[2021-02-06] MEDS: LORazepam 2 MG TABLET PO PRN ×2 (08:50→16:23)
[2021-02-06] MEDS: PALIPERIDONE 6 MG ER TABLET PO SCH ×2 (08:58→20:26)
[2021-02-06 09:22] VITALS: BP 110/71
[2021-02-06] MEDS: IBUPROFEN 400 MG TABLET PO PRN (13:22)
[2021-02-06 16:10] VITALS: BP 114/80
[2021-02-06] MEDS: HALOPERIDOL 5 MG TABLET PO PRN (17:06)
[2021-02-06] MEDS: ZOLPIDEM TARTRATE 10 MG TABLET PO PRN (20:26)
[2021-02-07 01:48] VITALS: BP 122/71
[2021-02-07 08:37] VITALS: BP 101/67
[2021-02-07] MEDS: CloZAPine 100 MG TABLET PO SCH ×2 (08:38→20:38)
[2021-02-07] MEDS: QUEtiapine FUMARATE 300 MG TABLET PO SCH ×2 (08:38→16:20)
[2021-02-07] MEDS: OMEGA-3/DHA/EPA/FISH OIL 1,000 MG CAPSULE PO SCH (08:39)
[2021-02-07] MEDS: TOPIRAMATE 100 MG TABLET PO SCH ×2 (08:39→16:20)
[2021-02-07] MEDS: PALIPERIDONE 6 MG ER TABLET PO SCH ×2 (08:39→20:38)
[2021-02-07] MEDS: LORazepam 2 MG TABLET PO PRN ×3 (10:57→20:39)
[2021-02-07] MEDS: HALOPERIDOL 5 MG TABLET PO PRN ×2 (10:58→16:20)
[2021-02-07 16:19] VITALS: BP 136/80
[2021-02-07] MEDS: ZOLPIDEM TARTRATE 10 MG TABLET PO PRN (20:39)
[2021-02-08 04:55] VITALS: BP 118/74
[2021-02-08 08:33] VITALS: BP 110/69
[2021-02-08] MEDS: QUEtiapine FUMARATE 300 MG TABLET PO SCH ×2 (08:54→17:13)
[2021-02-08] MEDS: TOPIRAMATE 100 MG TABLET PO SCH ×2 (08:54→17:13)
[2021-02-08] MEDS: OMEGA-3/DHA/EPA/FISH OIL 1,000 MG CAPSULE PO SCH (08:54)
[2021-02-08] MEDS: CloZAPine 100 MG TABLET PO SCH ×2 (08:54→20:47)
[2021-02-08] MEDS: PALIPERIDONE 6 MG ER TABLET PO SCH ×2 (08:54→20:47)
[2021-02-08] MEDS: HALOPERIDOL 5 MG TABLET PO PRN ×2 (13:31→19:43)
[2021-02-08] MEDS: ACETAMINOPHEN 325 MG TABLET PO PRN (13:32)
[2021-02-08] MEDS: NICOTINE 14 MG/24 HOUR PATCH TD PRN (13:32)
[2021-02-08] MEDS: LORazepam 2 MG TABLET PO PRN ×2 (13:32→19:43)
[2021-02-08 16:32] VITALS: BP 114/77
[2021-02-09 05:03] VITALS: BP 116/72
[2021-02-09 08:51] VITALS: BP 106/72
[2021-02-09] MEDS: OMEGA-3/DHA/EPA/FISH OIL 1,000 MG CAPSULE PO SCH (09:08)
[2021-02-09] MEDS: QUEtiapine FUMARATE 300 MG TABLET PO SCH ×2 (09:08→16:47)
[2021-02-09] MEDS: CloZAPine 100 MG TABLET PO SCH ×2 (09:08→21:17)
[2021-02-09] MEDS: PALIPERIDONE 6 MG ER TABLET PO SCH ×2 (09:08→21:17)
[2021-02-09] MEDS: TOPIRAMATE 100 MG TABLET PO SCH ×2 (09:08→16:48)
[2021-02-09] MEDS: IBUPROFEN 400 MG TABLET PO PRN (09:08)
[2021-02-09 16:33] VITALS: BP 119/79
[2021-02-09] MEDS: LORazepam 2 MG TABLET PO PRN (16:48)
[2021-02-09] MEDS: HALOPERIDOL 5 MG TABLET PO PRN (16:48)
[2021-02-09] MEDS: ACETAMINOPHEN 325 MG TABLET PO PRN (16:48)
[2021-02-09] MEDS: ZOLPIDEM TARTRATE 10 MG TABLET PO PRN (21:17)
[2021-02-10 05:24] VITALS: BP 118/79
[2021-02-10] MEDS: LORazepam 2 MG TABLET PO PRN ×2 (08:15→13:54)
[2021-02-10] MEDS: HALOPERIDOL 5 MG TABLET PO PRN ×2 (08:15→13:54)
[2021-02-10] MEDS: TOPIRAMATE 100 MG TABLET PO SCH ×2 (08:39→16:23)
[2021-02-10] MEDS: PALIPERIDONE 6 MG ER TABLET PO SCH ×2 (08:40→20:28)
[2021-02-10] MEDS: CloZAPine 100 MG TABLET PO SCH ×2 (08:40→20:28)
[2021-02-10] MEDS: OMEGA-3/DHA/EPA/FISH OIL 1,000 MG CAPSULE PO SCH (08:40)
[2021-02-10] MEDS: QUEtiapine FUMARATE 300 MG TABLET PO SCH ×2 (08:40→16:23)
[2021-02-10 08:56] VITALS: BP 94/61
[2021-02-10] MEDS: NICOTINE 14 MG/24 HOUR PATCH TD PRN (12:58)
[2021-02-10] MEDS: IBUPROFEN 400 MG TABLET PO PRN (14:05)
[2021-02-10 16:16] VITALS: BP 106/65
[2021-02-10] MEDS: ZOLPIDEM TARTRATE 10 MG TABLET PO PRN (20:28)
[2021-02-11 04:37] VITALS: BP 112/74
[2021-02-11] MEDS: LORazepam 2 MG TABLET PO PRN ×2 (08:15→14:20)
[2021-02-11] MEDS: HALOPERIDOL 5 MG TABLET PO PRN ×2 (08:15→14:20)
[2021-02-11 08:34] VITALS: BP 115/76
[2021-02-11] MEDS: OMEGA-3/DHA/EPA/FISH OIL 1,000 MG CAPSULE PO SCH (08:39)
[2021-02-11] MEDS: PALIPERIDONE 6 MG ER TABLET PO SCH ×2 (08:39→20:14)
[2021-02-11] MEDS: CloZAPine 100 MG TABLET PO SCH ×2 (08:39→20:14)
[2021-02-11] MEDS: QUEtiapine FUMARATE 300 MG TABLET PO SCH ×2 (08:39→16:30)
[2021-02-11] MEDS: TOPIRAMATE 100 MG TABLET PO SCH ×2 (08:39→16:30)
[2021-02-11] MEDS: NICOTINE 14 MG/24 HOUR PATCH TD PRN (14:20)
[2021-02-11 16:13] VITALS: BP 119/79
[2021-02-11] MEDS: ZOLPIDEM TARTRATE 10 MG TABLET PO PRN (20:14)
[2021-02-12 02:35] VITALS: BP 120/76
[2021-02-12] MEDS: LORazepam 2 MG TABLET PO PRN ×3 (08:40→18:40)
[2021-02-12] MEDS: CloZAPine 100 MG TABLET PO SCH ×2 (08:40→20:42)
[2021-02-12] MEDS: PALIPERIDONE 6 MG ER TABLET PO SCH ×2 (08:40→20:42)
[2021-02-12] MEDS: QUEtiapine FUMARATE 300 MG TABLET PO SCH ×2 (08:40→16:10)
[2021-02-12] MEDS: TOPIRAMATE 100 MG TABLET PO SCH ×2 (08:40→16:10)
[2021-02-12 08:44] VITALS: BP 99/70
[2021-02-12] MEDS: OMEGA-3/DHA/EPA/FISH OIL 1,000 MG CAPSULE PO SCH (09:00)
[2021-02-12 09:18] LABS: BASOPHILS % (AUTO) 1.4 % (0.0-2.0); EOSINOPHILS % (AUTO) 7.4 % (1.0-6.0); HEMATOCRIT 37.4 % (41-53); HEMOGLOBIN 12.5 g/dL (13.5-17.5); LYMPHOCYTES # (AUTO) 1.6 K/uL (1.0-4.8); LYMPHOCYTES % (AUTO) 24.3 % (22.0-44.0); MEAN CORPUSCULAR HEMOGLOBIN 30.3 pg (26.0-34.0); MEAN CORPUSCULAR HGB CONC 33.4 G/dL (31.0-37.0); MEAN CORPUSCULAR VOLUME 91 fL (80-100); MONOCYTES # (AUTO) 0.6 K/uL (0.1-1.0); NEUTROPHILS # (AUTO) 3.8 K/uL (1.8-7.7); NEUTROPHILS % (AUTO) 57.9 % (40.0-70.0); PLATELET COUNT (AUTO) 296 K/uL (150-450); RED BLOOD CELL COUNT(AUTO) 4.13 MIL/uL (4.50-5.90); RED CELL DISTRIBUTION WIDTH 13.4 % (11.5-14.5)
[2021-02-12] MEDS: HALOPERIDOL 5 MG TABLET PO PRN ×2 (11:19→18:40)
[2021-02-12] MEDS: ZOLPIDEM TARTRATE 10 MG TABLET PO PRN (20:42)
[2021-02-13 05:43] VITALS: BP 101/68
[2021-02-13 08:29] VITALS: BP 114/77
[2021-02-13] MEDS: CloZAPine 100 MG TABLET PO SCH ×2 (09:01→20:14)
[2021-02-13] MEDS: OMEGA-3/DHA/EPA/FISH OIL 1,000 MG CAPSULE PO SCH (09:01)
[2021-02-13] MEDS: TOPIRAMATE 100 MG TABLET PO SCH ×2 (09:01→17:09)
[2021-02-13] MEDS: PALIPERIDONE 6 MG ER TABLET PO SCH ×2 (09:01→20:13)
[2021-02-13] MEDS: QUEtiapine FUMARATE 300 MG TABLET PO SCH ×2 (09:34→17:09)
[2021-02-13] MEDS: LORazepam 2 MG TABLET PO PRN ×2 (13:36→17:09)
[2021-02-13] MEDS: IBUPROFEN 400 MG TABLET PO PRN (13:37)
[2021-02-13] MEDS: NICOTINE 14 MG/24 HOUR PATCH TD PRN (14:54)
[2021-02-13 16:16] VITALS: BP 103/66
[2021-02-13] MEDS: ZOLPIDEM TARTRATE 10 MG TABLET PO PRN (20:13)
[2021-02-14 00:19] VITALS: BP 108/70
[2021-02-14] MEDS: LORazepam 2 MG TABLET PO PRN (08:00)
[2021-02-14] MEDS: HALOPERIDOL 5 MG TABLET PO PRN (08:00)
[2021-02-14 08:45] VITALS: BP 108/60
[2021-02-14] MEDS: PALIPERIDONE 6 MG ER TABLET PO SCH ×2 (08:47→21:28)
[2021-02-14] MEDS: OMEGA-3/DHA/EPA/FISH OIL 1,000 MG CAPSULE PO SCH (08:47)
[2021-02-14] MEDS: QUEtiapine FUMARATE 300 MG TABLET PO SCH ×2 (08:47→17:16)
[2021-02-14] MEDS: TOPIRAMATE 100 MG TABLET PO SCH ×2 (08:47→17:16)
[2021-02-14] MEDS: CloZAPine 100 MG TABLET PO SCH ×2 (08:47→21:28)
[2021-02-14] MEDS: NICOTINE 14 MG/24 HOUR PATCH TD PRN (09:20)
[2021-02-14] MEDS: ACETAMINOPHEN 325 MG TABLET PO PRN (09:54)
[2021-02-14] MEDS: IBUPROFEN 400 MG TABLET PO PRN (11:49)
[2021-02-14 16:17] VITALS: BP 117/84
[2021-02-15 05:43] VITALS: BP 114/78
[2021-02-15] MEDS: TOPIRAMATE 100 MG TABLET PO SCH ×2 (09:12→16:49)
[2021-02-15] MEDS: LORazepam 2 MG TABLET PO PRN ×2 (09:12→16:50)
[2021-02-15] MEDS: OMEGA-3/DHA/EPA/FISH OIL 1,000 MG CAPSULE PO SCH (09:12)
[2021-02-15] MEDS: PALIPERIDONE 6 MG ER TABLET PO SCH ×2 (09:12→20:23)
[2021-02-15] MEDS: HALOPERIDOL 5 MG TABLET PO PRN ×2 (09:12→16:50)
[2021-02-15] MEDS: CloZAPine 100 MG TABLET PO SCH ×2 (09:13→20:23)
[2021-02-15] MEDS: QUEtiapine FUMARATE 300 MG TABLET PO SCH ×2 (09:13→16:50)
[2021-02-15 10:32] VITALS: BP 109/83
[2021-02-15 16:19] VITALS: BP 114/80
[2021-02-15] MEDS: IBUPROFEN 400 MG TABLET PO PRN (16:50)
[2021-02-15] MEDS: ZOLPIDEM TARTRATE 10 MG TABLET PO PRN (20:23)
[2021-02-16] MEDS: PALIPERIDONE 6 MG ER TABLET PO SCH ×2 (08:18→20:48)
[2021-02-16] MEDS: CloZAPine 100 MG TABLET PO SCH ×2 (08:18→20:48)
[2021-02-16] MEDS: QUEtiapine FUMARATE 300 MG TABLET PO SCH ×2 (08:19→16:21)
[2021-02-16] MEDS: LORazepam 2 MG TABLET PO PRN ×2 (08:19→16:21)
[2021-02-16] MEDS: TOPIRAMATE 100 MG TABLET PO SCH ×2 (08:19→16:21)
[2021-02-16 08:39] VITALS: BP 112/73
[2021-02-16] MEDS: OMEGA-3/DHA/EPA/FISH OIL 1,000 MG CAPSULE PO SCH (08:41)
[2021-02-16] MEDS: HALOPERIDOL 5 MG TABLET PO PRN ×2 (09:10→16:21)
[2021-02-16] MEDS: NICOTINE 14 MG/24 HOUR PATCH TD PRN (09:26)
[2021-02-16 16:21] VITALS: BP 115/77
[2021-02-16] MEDS: IBUPROFEN 400 MG TABLET PO PRN (16:22)
[2021-02-16] MEDS: ZOLPIDEM TARTRATE 10 MG TABLET PO PRN (20:48)
[2021-02-17 05:33] VITALS: BP 118/63
[2021-02-17 08:27] VITALS: BP 130/97
[2021-02-17] MEDS: OMEGA-3/DHA/EPA/FISH OIL 1,000 MG CAPSULE PO SCH (08:39)
[2021-02-17] MEDS: QUEtiapine FUMARATE 300 MG TABLET PO SCH ×2 (08:39→16:32)
[2021-02-17] MEDS: TOPIRAMATE 100 MG TABLET PO SCH ×2 (08:40→16:32)
[2021-02-17] MEDS: CloZAPine 100 MG TABLET PO SCH ×2 (08:40→20:56)
[2021-02-17] MEDS: LORazepam 2 MG TABLET PO PRN ×2 (08:40→16:37)
[2021-02-17] MEDS: PALIPERIDONE 6 MG ER TABLET PO SCH ×2 (08:40→20:56)
[2021-02-17] MEDS: NICOTINE 14 MG/24 HOUR PATCH TD PRN (09:53)
[2021-02-17] MEDS: HALOPERIDOL 5 MG TABLET PO PRN ×2 (09:57→16:37)
[2021-02-17 17:38] VITALS: BP 116/87
[2021-02-17] MEDS: ZOLPIDEM TARTRATE 10 MG TABLET PO PRN (20:56)
[2021-02-18 05:47] VITALS: BP 114/76
[2021-02-18] MEDS: PALIPERIDONE 6 MG ER TABLET PO SCH ×2 (08:56→20:14)
[2021-02-18] MEDS: HALOPERIDOL 5 MG TABLET PO PRN (08:56)
[2021-02-18] MEDS: QUEtiapine FUMARATE 300 MG TABLET PO SCH ×2 (08:56→17:05)
[2021-02-18] MEDS: LORazepam 2 MG TABLET PO PRN ×2 (08:56→17:05)
[2021-02-18] MEDS: OMEGA-3/DHA/EPA/FISH OIL 1,000 MG CAPSULE PO SCH (08:56)
[2021-02-18] MEDS: CloZAPine 100 MG TABLET PO SCH ×2 (08:56→20:14)
[2021-02-18] MEDS: TOPIRAMATE 100 MG TABLET PO SCH ×2 (08:56→17:05)
[2021-02-18 09:10] VITALS: BP 138/83
[2021-02-18 17:42] VITALS: BP 121/80
[2021-02-18] MEDS: ZOLPIDEM TARTRATE 10 MG TABLET PO PRN (20:38)
[2021-02-19 05:46] VITALS: BP 125/81
[2021-02-19 08:04] VITALS: BP 106/68
[2021-02-19 08:08] LABS: BASOPHILS % (AUTO) 0.8 % (0.0-2.0); EOSINOPHILS % (AUTO) 6.6 % (1.0-6.0); HEMATOCRIT 37.4 % (41-53); HEMOGLOBIN 12.5 g/dL (13.5-17.5); LYMPHOCYTES # (AUTO) 2.3 K/uL (1.0-4.8); LYMPHOCYTES % (AUTO) 30.1 % (22.0-44.0); MEAN CORPUSCULAR HEMOGLOBIN 30.1 pg (26.0-34.0); MEAN CORPUSCULAR HGB CONC 33.4 G/dL (31.0-37.0); MEAN CORPUSCULAR VOLUME 90 fL (80-100); MONOCYTES # (AUTO) 0.7 K/uL (0.1-1.0); MONOCYTES % (AUTO) 8.9 % (2.0-9.0); NEUTROPHILS # (AUTO) 4.1 K/uL (1.8-7.7); NEUTROPHILS % (AUTO) 53.6 % (40.0-70.0); PLATELET COUNT (AUTO) 304 K/uL (150-450); RED BLOOD CELL COUNT(AUTO) 4.14 MIL/uL (4.50-5.90); RED CELL DISTRIBUTION WIDTH 13.4 % (11.5-14.5)
[2021-02-19] MEDS: QUEtiapine FUMARATE 300 MG TABLET PO SCH ×2 (08:19→16:56)
[2021-02-19] MEDS: OMEGA-3/DHA/EPA/FISH OIL 1,000 MG CAPSULE PO SCH (08:19)
[2021-02-19] MEDS: TOPIRAMATE 100 MG TABLET PO SCH ×2 (08:19→16:56)
[2021-02-19] MEDS: NICOTINE 14 MG/24 HOUR PATCH TD PRN (08:20)
[2021-02-19] MEDS: PALIPERIDONE 6 MG ER TABLET PO SCH ×2 (08:20→20:16)
[2021-02-19] MEDS: CloZAPine 100 MG TABLET PO SCH ×2 (08:20→20:16)
[2021-02-19] MEDS: HALOPERIDOL 5 MG TABLET PO PRN ×3 (08:27→18:41)
[2021-02-19] MEDS: ACETAMINOPHEN 325 MG TABLET PO PRN (08:29)
[2021-02-19] MEDS: LORazepam 2 MG TABLET PO PRN ×2 (10:44→16:56)
[2021-02-19] MEDS: IBUPROFEN 400 MG TABLET PO PRN (13:24)
[2021-02-19 16:28] VITALS: BP 133/83
[2021-02-20 06:14] VITALS: BP 125/83
[2021-02-20 08:31] VITALS: BP 103/63
[2021-02-20] MEDS: PALIPERIDONE 6 MG ER TABLET PO SCH ×2 (08:56→20:34)
[2021-02-20] MEDS: CloZAPine 100 MG TABLET PO SCH ×2 (08:58→20:34)
[2021-02-20] MEDS: OMEGA-3/DHA/EPA/FISH OIL 1,000 MG CAPSULE PO SCH (08:58)
[2021-02-20] MEDS: TOPIRAMATE 100 MG TABLET PO SCH ×2 (08:58→16:19)
[2021-02-20] MEDS: QUEtiapine FUMARATE 300 MG TABLET PO SCH ×2 (08:58→16:19)
[2021-02-20] MEDS: NICOTINE 14 MG/24 HOUR PATCH TD PRN (09:00)
[2021-02-20] MEDS: IBUPROFEN 400 MG TABLET PO PRN (13:04)
[2021-02-20] MEDS: LORazepam 2 MG TABLET PO PRN ×2 (13:05→18:24)
[2021-02-20] MEDS: HALOPERIDOL 5 MG TABLET PO PRN ×2 (13:05→18:24)
[2021-02-20 16:16] VITALS: BP 135/82
[2021-02-20 16:17] VITALS: BP 133/81
[2021-02-20] MEDS: ZOLPIDEM TARTRATE 10 MG TABLET PO PRN (20:34)
[2021-02-21 01:08] VITALS: BP 132/85
[2021-02-21] MEDS: CloZAPine 100 MG TABLET PO SCH ×2 (08:20→20:24)
[2021-02-21] MEDS: OMEGA-3/DHA/EPA/FISH OIL 1,000 MG CAPSULE PO SCH (08:20)
[2021-02-21] MEDS: PALIPERIDONE 6 MG ER TABLET PO SCH ×2 (08:20→20:24)
[2021-02-21] MEDS: HALOPERIDOL 5 MG TABLET PO PRN ×3 (08:20→18:20)
[2021-02-21] MEDS: LORazepam 2 MG TABLET PO PRN ×3 (08:20→18:20)
[2021-02-21] MEDS: QUEtiapine FUMARATE 300 MG TABLET PO SCH ×2 (08:28→16:20)
[2021-02-21] MEDS: TOPIRAMATE 100 MG TABLET PO SCH ×2 (08:29→16:20)
[2021-02-21 08:34] VITALS: BP 140/88
[2021-02-21] MEDS: IBUPROFEN 400 MG TABLET PO PRN (13:25)
[2021-02-21 16:26] VITALS: BP 113/68
[2021-02-21] MEDS: ZOLPIDEM TARTRATE 10 MG TABLET PO PRN (20:24)
[2021-02-22 05:42] VITALS: BP 104/69
[2021-02-22 08:20] VITALS: BP 129/92
[2021-02-22] MEDS: CloZAPine 100 MG TABLET PO SCH ×2 (08:21→20:07)
[2021-02-22] MEDS: QUEtiapine FUMARATE 300 MG TABLET PO SCH ×2 (08:21→16:05)
[2021-02-22] MEDS: TOPIRAMATE 100 MG TABLET PO SCH ×2 (08:21→16:05)
[2021-02-22] MEDS: OMEGA-3/DHA/EPA/FISH OIL 1,000 MG CAPSULE PO SCH (08:22)
[2021-02-22] MEDS: NICOTINE 14 MG/24 HOUR PATCH TD PRN (09:18)
[2021-02-22] MEDS: PALIPERIDONE 6 MG ER TABLET PO SCH ×2 (09:18→20:06)
[2021-02-22] MEDS: IBUPROFEN 400 MG TABLET PO PRN ×2 (09:19→20:44)
[2021-02-22 16:33] VITALS: BP 118/82
[2021-02-22] MEDS: LORazepam 2 MG TABLET PO PRN (17:28)
[2021-02-22] MEDS: HALOPERIDOL 5 MG TABLET PO PRN (20:44)
[2021-02-23 04:42] VITALS: BP 120/79
[2021-02-23] MEDS: OMEGA-3/DHA/EPA/FISH OIL 1,000 MG CAPSULE PO SCH (08:05)
[2021-02-23] MEDS: CloZAPine 100 MG TABLET PO SCH ×2 (08:05→20:13)
[2021-02-23] MEDS: PALIPERIDONE 6 MG ER TABLET PO SCH ×2 (08:05→20:12)
[2021-02-23 08:06] VITALS: BP 117/83
[2021-02-23] MEDS: LORazepam 2 MG TABLET PO PRN ×2 (08:06→17:40)
[2021-02-23] MEDS: TOPIRAMATE 100 MG TABLET PO SCH ×2 (08:06→16:40)
[2021-02-23] MEDS: QUEtiapine FUMARATE 300 MG TABLET PO SCH ×2 (08:06→16:39)
[2021-02-23] MEDS: IBUPROFEN 400 MG TABLET PO PRN ×2 (08:06→17:40)
[2021-02-23] MEDS: NICOTINE 14 MG/24 HOUR PATCH TD PRN (08:07)
[2021-02-23 08:15] VITALS: BP 115/81
[2021-02-23 17:34] VITALS: BP 118/76
[2021-02-23] MEDS: HALOPERIDOL 5 MG TABLET PO PRN (17:40)
[2021-02-23] MEDS: ZOLPIDEM TARTRATE 10 MG TABLET PO PRN (21:07)
[2021-02-24 05:44] VITALS: BP 99/62
[2021-02-24] MEDS: FERROUS SULFATE 325 MG EC TABLET PO SCH ×2 (06:48→17:00)
[2021-02-24 07:57] VITALS: BP 104/71
[2021-02-24] MEDS: CloZAPine 100 MG TABLET PO SCH ×2 (08:22→20:50)
[2021-02-24] MEDS: QUEtiapine FUMARATE 300 MG TABLET PO SCH ×2 (08:22→17:00)
[2021-02-24] MEDS: TOPIRAMATE 100 MG TABLET PO SCH ×2 (08:22→17:00)
[2021-02-24] MEDS: OMEGA-3/DHA/EPA/FISH OIL 1,000 MG CAPSULE PO SCH (08:22)
[2021-02-24] MEDS: HALOPERIDOL 5 MG TABLET PO PRN ×2 (08:23→14:15)
[2021-02-24] MEDS: PALIPERIDONE 6 MG ER TABLET PO SCH ×2 (08:23→20:50)
[2021-02-24] MEDS: LORazepam 2 MG TABLET PO PRN ×2 (08:23→17:00)
[2021-02-24] MEDS: NICOTINE 14 MG/24 HOUR PATCH TD PRN (11:15)
[2021-02-24] MEDS: IBUPROFEN 400 MG TABLET PO PRN (14:14)
[2021-02-24 14:31] VITALS: BP 104/71
[2021-02-24 16:47] VITALS: BP 119/75
[2021-02-24] MEDS: ZOLPIDEM TARTRATE 10 MG TABLET PO PRN (20:50)
[2021-02-25 04:41] VITALS: BP 107/74
[2021-02-25] MEDS: FERROUS SULFATE 325 MG EC TABLET PO SCH ×2 (06:30→16:30)
[2021-02-25 08:34] VITALS: BP 125/82
[2021-02-25] MEDS: NICOTINE 14 MG/24 HOUR PATCH TD PRN (09:24)
[2021-02-25] MEDS: PALIPERIDONE 6 MG ER TABLET PO SCH ×2 (09:26→20:16)
[2021-02-25] MEDS: OMEGA-3/DHA/EPA/FISH OIL 1,000 MG CAPSULE PO SCH (09:26)
[2021-02-25] MEDS: CloZAPine 100 MG TABLET PO SCH ×2 (09:26→20:16)
[2021-02-25] MEDS: TOPIRAMATE 100 MG TABLET PO SCH ×2 (09:27→16:31)
[2021-02-25] MEDS: HALOPERIDOL 5 MG TABLET PO PRN ×3 (09:27→18:37)
[2021-02-25] MEDS: QUEtiapine FUMARATE 300 MG TABLET PO SCH ×2 (09:35→16:31)
[2021-02-25] MEDS: LORazepam 2 MG TABLET PO PRN ×2 (11:31→16:30)
[2021-02-25] MEDS: ACETAMINOPHEN 325 MG TABLET PO PRN (13:14)
[2021-02-25 16:17] VITALS: BP 107/74
[2021-02-25] MEDS: IBUPROFEN 400 MG TABLET PO PRN (16:35)
[2021-02-25] MEDS: ZOLPIDEM TARTRATE 10 MG TABLET PO PRN (20:16)
[2021-02-26 06:08] VITALS: BP 105/64
[2021-02-26] MEDS: FERROUS SULFATE 325 MG EC TABLET PO SCH ×2 (06:32→16:15)
[2021-02-26 07:33] LABS: BASOPHILS % (AUTO) 0.8 % (0.0-2.0); EOSINOPHILS % (AUTO) 7.3 % (1.0-6.0); HEMATOCRIT 36.6 % (41-53); HEMOGLOBIN 12.1 g/dL (13.5-17.5); LYMPHOCYTES # (AUTO) 1.6 K/uL (1.0-4.8); LYMPHOCYTES % (AUTO) 23.7 % (22.0-44.0); MEAN CORPUSCULAR HEMOGLOBIN 29.9 pg (26.0-34.0); MEAN CORPUSCULAR HGB CONC 33.1 G/dL (31.0-37.0); MEAN CORPUSCULAR VOLUME 90 fL (80-100); MONOCYTES # (AUTO) 0.7 K/uL (0.1-1.0); NEUTROPHILS # (AUTO) 3.9 K/uL (1.8-7.7); NEUTROPHILS % (AUTO) 58.2 % (40.0-70.0); PLATELET COUNT (AUTO) 349 K/uL (150-450); RED BLOOD CELL COUNT(AUTO) 4.06 MIL/uL (4.50-5.90); RED CELL DISTRIBUTION WIDTH 13.5 % (11.5-14.5)
[2021-02-26] MEDS: OMEGA-3/DHA/EPA/FISH OIL 1,000 MG CAPSULE PO SCH (08:45)
[2021-02-26] MEDS: QUEtiapine FUMARATE 300 MG TABLET PO SCH ×2 (08:45→16:15)
[2021-02-26] MEDS: TOPIRAMATE 100 MG TABLET PO SCH ×2 (08:46→16:15)
[2021-02-26] MEDS: PALIPERIDONE 6 MG ER TABLET PO SCH ×2 (08:46→20:29)
[2021-02-26] MEDS: CloZAPine 100 MG TABLET PO SCH ×2 (08:46→20:29)
[2021-02-26 08:53] VITALS: BP 117/74
[2021-02-26] MEDS: IBUPROFEN 400 MG TABLET PO PRN (11:23)
[2021-02-26] MEDS: NICOTINE 14 MG/24 HOUR PATCH TD PRN (11:23)
[2021-02-26] MEDS: HALOPERIDOL 5 MG TABLET PO PRN ×2 (11:24→16:15)
[2021-02-26] MEDS: LORazepam 2 MG TABLET PO PRN ×2 (11:24→16:15)
[2021-02-26 16:22] VITALS: BP 112/77
[2021-02-26] MEDS: ZOLPIDEM TARTRATE 10 MG TABLET PO PRN (20:29)
[2021-02-27 04:35] VITALS: BP 118/76
[2021-02-27] MEDS: FERROUS SULFATE 325 MG EC TABLET PO SCH ×2 (06:22→16:29)
[2021-02-27 08:40] VITALS: BP 122/85
[2021-02-27] MEDS: PALIPERIDONE 6 MG ER TABLET PO SCH ×2 (09:28→20:58)
[2021-02-27] MEDS: QUEtiapine FUMARATE 300 MG TABLET PO SCH ×2 (09:28→16:29)
[2021-02-27] MEDS: OMEGA-3/DHA/EPA/FISH OIL 1,000 MG CAPSULE PO SCH (09:28)
[2021-02-27] MEDS: TOPIRAMATE 100 MG TABLET PO SCH ×2 (09:29→16:29)
[2021-02-27] MEDS: CloZAPine 100 MG TABLET PO SCH ×2 (09:31→20:58)
[2021-02-27] MEDS: HALOPERIDOL 5 MG TABLET PO PRN ×2 (11:07→15:50)
[2021-02-27] MEDS: NICOTINE 14 MG/24 HOUR PATCH TD PRN (11:07)
[2021-02-27] MEDS: IBUPROFEN 400 MG TABLET PO PRN (11:08)
[2021-02-27] MEDS: LORazepam 2 MG TABLET PO PRN (15:50)
[2021-02-27 16:18] VITALS: BP 123/90
[2021-02-27] MEDS: MAG HYDROX/AL HYDROX/SIMETH ES 30 ML SUSPENSION UDCUP PO PRN (20:06)
[2021-02-27] MEDS: ZOLPIDEM TARTRATE 10 MG TABLET PO PRN (20:58)
[2021-02-28 05:39] VITALS: BP 101/56
[2021-02-28] MEDS: FERROUS SULFATE 325 MG EC TABLET PO SCH ×2 (06:30→16:16)
[2021-02-28 09:12] VITALS: BP 110/80
[2021-02-28] MEDS: PALIPERIDONE 6 MG ER TABLET PO SCH ×2 (09:20→20:07)
[2021-02-28] MEDS: OMEGA-3/DHA/EPA/FISH OIL 1,000 MG CAPSULE PO SCH (09:20)
[2021-02-28] MEDS: QUEtiapine FUMARATE 300 MG TABLET PO SCH ×2 (09:20→16:17)
[2021-02-28] MEDS: TOPIRAMATE 100 MG TABLET PO SCH ×2 (09:20→16:17)
[2021-02-28] MEDS: CloZAPine 100 MG TABLET PO SCH ×2 (09:20→20:07)
[2021-02-28] MEDS: HALOPERIDOL 5 MG TABLET PO PRN ×2 (12:16→21:09)
[2021-02-28] MEDS: NICOTINE 14 MG/24 HOUR PATCH TD PRN (12:17)
[2021-02-28] MEDS: IBUPROFEN 400 MG TABLET PO PRN (12:17)
[2021-02-28] MEDS: LORazepam 2 MG TABLET PO PRN ×2 (13:42→21:09)
[2021-02-28 17:13] VITALS: BP 105/63
[2021-02-28] MEDS: ZOLPIDEM TARTRATE 10 MG TABLET PO PRN (20:19)
[2021-02-28] MEDS: MAG HYDROX/AL HYDROX/SIMETH ES 30 ML SUSPENSION UDCUP PO PRN (20:19)
[2021-02-28] MEDS: ACETAMINOPHEN 325 MG TABLET PO PRN (20:19)
[2021-03-01 05:48] VITALS: BP 94/65
[2021-03-01] MEDS: FERROUS SULFATE 325 MG EC TABLET PO SCH ×2 (06:16→16:29)
[2021-03-01] MEDS: QUEtiapine FUMARATE 300 MG TABLET PO SCH ×2 (08:13→16:29)
[2021-03-01] MEDS: TOPIRAMATE 100 MG TABLET PO SCH ×2 (08:13→16:29)
[2021-03-01] MEDS: PALIPERIDONE 6 MG ER TABLET PO SCH ×2 (08:13→20:53)
[2021-03-01] MEDS: CloZAPine 100 MG TABLET PO SCH ×2 (08:13→20:53)
[2021-03-01] MEDS: OMEGA-3/DHA/EPA/FISH OIL 1,000 MG CAPSULE PO SCH (08:13)
[2021-03-01 08:16] VITALS: BP 102/67
[2021-03-01] MEDS: HALOPERIDOL 5 MG TABLET PO PRN ×2 (12:28→16:30)
[2021-03-01] MEDS: LORazepam 2 MG TABLET PO PRN ×2 (12:28→16:30)
[2021-03-01] MEDS: IBUPROFEN 400 MG TABLET PO PRN (12:28)
[2021-03-01] MEDS: NICOTINE 14 MG/24 HOUR PATCH TD PRN (12:29)
[2021-03-01 16:14] VITALS: BP 104/71
[2021-03-01] MEDS: ZOLPIDEM TARTRATE 10 MG TABLET PO PRN (20:53)
[2021-03-02 06:23] VITALS: BP 106/64
[2021-03-02] MEDS: FERROUS SULFATE 325 MG EC TABLET PO SCH ×2 (07:06→16:02)
[2021-03-02] MEDS: QUEtiapine FUMARATE 300 MG TABLET PO SCH ×2 (08:38→16:02)
[2021-03-02] MEDS: PALIPERIDONE 6 MG ER TABLET PO SCH ×2 (08:38→20:27)
[2021-03-02] MEDS: OMEGA-3/DHA/EPA/FISH OIL 1,000 MG CAPSULE PO SCH (08:38)
[2021-03-02] MEDS: CloZAPine 100 MG TABLET PO SCH ×2 (08:38→20:27)
[2021-03-02] MEDS: TOPIRAMATE 100 MG TABLET PO SCH ×2 (08:38→16:02)
[2021-03-02 09:16] VITALS: BP 109/69
[2021-03-02] MEDS: LORazepam 2 MG TABLET PO PRN ×2 (10:58→15:02)
[2021-03-02] MEDS: HALOPERIDOL 5 MG TABLET PO PRN ×2 (10:58→15:02)
[2021-03-02] MEDS: NICOTINE 14 MG/24 HOUR PATCH TD PRN (15:08)
[2021-03-02 16:26] VITALS: BP 125/71
[2021-03-02] MEDS: IBUPROFEN 400 MG TABLET PO PRN (16:29)
[2021-03-02] MEDS: ZOLPIDEM TARTRATE 10 MG TABLET PO PRN (20:27)
[2021-03-03 05:08] VITALS: BP 116/68
[2021-03-03] MEDS: FERROUS SULFATE 325 MG EC TABLET PO SCH ×2 (07:12→16:46)
[2021-03-03 08:26] VITALS: BP 102/73
[2021-03-03] MEDS: CloZAPine 100 MG TABLET PO SCH ×2 (08:53→20:44)
[2021-03-03] MEDS: OMEGA-3/DHA/EPA/FISH OIL 1,000 MG CAPSULE PO SCH (08:54)
[2021-03-03] MEDS: PALIPERIDONE 6 MG ER TABLET PO SCH ×2 (08:54→20:44)
[2021-03-03] MEDS: TOPIRAMATE 100 MG TABLET PO SCH ×2 (08:54→16:46)
[2021-03-03] MEDS: QUEtiapine FUMARATE 300 MG TABLET PO SCH ×2 (08:54→16:46)
[2021-03-03] MEDS: NICOTINE 14 MG/24 HOUR PATCH TD PRN (13:10)
[2021-03-03 16:16] VITALS: BP 111/74
[2021-03-03] MEDS: LORazepam 2 MG TABLET PO PRN (17:36)
[2021-03-03] MEDS: HALOPERIDOL 5 MG TABLET PO PRN (17:36)
[2021-03-03] MEDS: ZOLPIDEM TARTRATE 10 MG TABLET PO PRN (20:44)
[2021-03-04 05:52] VITALS: BP 104/60
[2021-03-04] MEDS: FERROUS SULFATE 325 MG EC TABLET PO SCH ×2 (06:38→16:35)
[2021-03-04] MEDS: HALOPERIDOL 5 MG TABLET PO PRN (08:25)
[2021-03-04] MEDS: LORazepam 2 MG TABLET PO PRN ×2 (08:25→15:56)
[2021-03-04 08:38] VITALS: BP 101/60
[2021-03-04] MEDS: CloZAPine 100 MG TABLET PO SCH ×2 (08:55→20:39)
[2021-03-04] MEDS: OMEGA-3/DHA/EPA/FISH OIL 1,000 MG CAPSULE PO SCH (08:56)
[2021-03-04] MEDS: PALIPERIDONE 6 MG ER TABLET PO SCH ×2 (08:56→20:37)
[2021-03-04] MEDS: TOPIRAMATE 100 MG TABLET PO SCH ×2 (08:56→16:35)
[2021-03-04] MEDS: QUEtiapine FUMARATE 300 MG TABLET PO SCH ×2 (08:56→16:35)
[2021-03-04] MEDS: NICOTINE 14 MG/24 HOUR PATCH TD PRN (12:48)
[2021-03-04 14:59] LABS: GLUCOMETER DEV NAME(LOC) POC.BV
[2021-03-04] MEDS: IBUPROFEN 400 MG TABLET PO PRN (15:57)
[2021-03-04 16:00] VITALS: BP 114/64
[2021-03-05 00:30] VITALS: BP 114/71
[2021-03-05] MEDS: FERROUS SULFATE 325 MG EC TABLET PO SCH ×2 (07:00→16:33)
[2021-03-05 08:30] VITALS: BP 110/77
[2021-03-05] MEDS: CloZAPine 100 MG TABLET PO SCH ×2 (08:55→20:56)
[2021-03-05] MEDS: TOPIRAMATE 100 MG TABLET PO SCH ×2 (08:55→16:33)
[2021-03-05] MEDS: PALIPERIDONE 6 MG ER TABLET PO SCH ×2 (08:55→20:56)
[2021-03-05] MEDS: OMEGA-3/DHA/EPA/FISH OIL 1,000 MG CAPSULE PO SCH (08:55)
[2021-03-05] MEDS: QUEtiapine FUMARATE 300 MG TABLET PO SCH ×2 (09:10→16:33)
[2021-03-05 16:21] VITALS: BP 123/75
[2021-03-05] MEDS: NICOTINE 14 MG/24 HOUR PATCH TD PRN (17:01)
[2021-03-06 01:37] VITALS: BP 112/75
[2021-03-06] MEDS: FERROUS SULFATE 325 MG EC TABLET PO SCH ×2 (06:43→16:11)
[2021-03-06 08:34] VITALS: BP 115/77
[2021-03-06] MEDS: QUEtiapine FUMARATE 300 MG TABLET PO SCH ×2 (09:08→16:10)
[2021-03-06] MEDS: OMEGA-3/DHA/EPA/FISH OIL 1,000 MG CAPSULE PO SCH (09:08)
[2021-03-06] MEDS: TOPIRAMATE 100 MG TABLET PO SCH ×2 (09:09→16:10)
[2021-03-06] MEDS: CloZAPine 100 MG TABLET PO SCH ×2 (09:09→20:09)
[2021-03-06] MEDS: PALIPERIDONE 6 MG ER TABLET PO SCH ×2 (09:09→20:09)
[2021-03-06 14:21] VITALS: BP 118/73
[2021-03-06] MEDS: LORazepam 2 MG TABLET PO PRN (14:21)
[2021-03-06] MEDS: HALOPERIDOL 5 MG TABLET PO PRN (14:21)
[2021-03-06] MEDS: IBUPROFEN 400 MG TABLET PO PRN (14:22)
[2021-03-06] MEDS: NICOTINE 14 MG/24 HOUR PATCH TD PRN (14:22)
[2021-03-06 16:27] VITALS: BP 115/76
[2021-03-07 01:27] VITALS: BP 102/63
[2021-03-07] MEDS: FERROUS SULFATE 325 MG EC TABLET PO SCH ×2 (06:38→16:33)
[2021-03-07] MEDS: OMEGA-3/DHA/EPA/FISH OIL 1,000 MG CAPSULE PO SCH (08:52)
[2021-03-07] MEDS: PALIPERIDONE 6 MG ER TABLET PO SCH ×2 (08:52→20:20)
[2021-03-07] MEDS: CloZAPine 100 MG TABLET PO SCH ×2 (08:52→20:20)
[2021-03-07] MEDS: TOPIRAMATE 100 MG TABLET PO SCH ×2 (08:52→16:33)
[2021-03-07] MEDS: QUEtiapine FUMARATE 300 MG TABLET PO SCH ×2 (08:52→16:33)
[2021-03-07 09:05] VITALS: BP 116/74
[2021-03-07] MEDS ORDERED: COVID-19 VACCINE,AD26(JANSSEN)(J&J)/PF 0.5 ML VIAL IM. ONE (09:14)
[2021-03-07] MEDS: LORazepam 2 MG TABLET PO PRN (09:41)
[2021-03-07] MEDS: ACETAMINOPHEN 325 MG TABLET PO PRN ×2 (09:42→17:52)
[2021-03-07] MEDS: HALOPERIDOL 5 MG TABLET PO PRN (10:06)
[2021-03-07] MEDS: NICOTINE 14 MG/24 HOUR PATCH TD PRN (10:07)
[2021-03-07 16:32] VITALS: BP 110/70
[2021-03-08 00:44] VITALS: BP 112/77
[2021-03-08] MEDS: FERROUS SULFATE 325 MG EC TABLET PO SCH ×2 (06:39→16:08)
[2021-03-08] MEDS: TOPIRAMATE 100 MG TABLET PO SCH ×2 (09:02→16:08)
[2021-03-08] MEDS: PALIPERIDONE 6 MG ER TABLET PO SCH ×2 (09:02→20:30)
[2021-03-08] MEDS: OMEGA-3/DHA/EPA/FISH OIL 1,000 MG CAPSULE PO SCH (09:03)
[2021-03-08] MEDS: QUEtiapine FUMARATE 300 MG TABLET PO SCH ×2 (09:03→16:08)
[2021-03-08] MEDS: CloZAPine 100 MG TABLET PO SCH ×2 (09:03→20:30)
[2021-03-08 09:08] VITALS: BP 122/65
[2021-03-08] MEDS: NICOTINE 14 MG/24 HOUR PATCH TD PRN (12:46)
[2021-03-08] MEDS: LORazepam 2 MG TABLET PO PRN (12:48)
[2021-03-08] MEDS: IBUPROFEN 400 MG TABLET PO PRN (12:53)
[2021-03-08 16:15] VITALS: BP 101/70
[2021-03-09 06:22] VITALS: BP 108/65
[2021-03-09] MEDS: FERROUS SULFATE 325 MG EC TABLET PO SCH ×2 (06:53→15:58)
[2021-03-09 08:12] LABS: BASOPHILS % (AUTO) 0.6 % (0.0-2.0); EOSINOPHILS % (AUTO) 4.2 % (1.0-6.0); HEMATOCRIT 38.6 % (41-53); HEMOGLOBIN 12.6 g/dL (13.5-17.5); LYMPHOCYTES # (AUTO) 1.6 K/uL (1.0-4.8); LYMPHOCYTES % (AUTO) 16.2 % (22.0-44.0); MEAN CORPUSCULAR HEMOGLOBIN 29.7 pg (26.0-34.0); MEAN CORPUSCULAR HGB CONC 32.7 G/dL (31.0-37.0); MEAN CORPUSCULAR VOLUME 91 fL (80-100); MONOCYTES % (AUTO) 10.7 % (2.0-9.0); NEUTROPHILS # (AUTO) 6.6 K/uL (1.8-7.7); NEUTROPHILS % (AUTO) 68.3 % (40.0-70.0); PLATELET COUNT (AUTO) 304 K/uL (150-450); RED BLOOD CELL COUNT(AUTO) 4.25 MIL/uL (4.50-5.90); RED CELL DISTRIBUTION WIDTH 14.1 % (11.5-14.5)
[2021-03-09 08:26] VITALS: BP 114/77
[2021-03-09] MEDS: TOPIRAMATE 100 MG TABLET PO SCH ×2 (08:54→15:58)
[2021-03-09] MEDS: QUEtiapine FUMARATE 300 MG TABLET PO SCH ×2 (08:55→15:58)
[2021-03-09] MEDS: OMEGA-3/DHA/EPA/FISH OIL 1,000 MG CAPSULE PO SCH (08:55)
[2021-03-09] MEDS: PALIPERIDONE 6 MG ER TABLET PO SCH ×2 (08:55→19:56)
[2021-03-09] MEDS: CloZAPine 100 MG TABLET PO SCH ×2 (08:55→19:56)
[2021-03-09 16:11] VITALS: BP 129/82
[2021-03-09] MEDS: HALOPERIDOL 5 MG TABLET PO PRN (16:39)
[2021-03-09] MEDS: LORazepam 2 MG TABLET PO PRN (16:39)
[2021-03-09] MEDS: IBUPROFEN 400 MG TABLET PO PRN (16:39)
[2021-03-09] MEDS: NICOTINE 14 MG/24 HOUR PATCH TD PRN (16:40)
[2021-03-10 06:20] VITALS: BP 104/68
[2021-03-10] MEDS: FERROUS SULFATE 325 MG EC TABLET PO SCH ×2 (06:32→16:02)
[2021-03-10 08:56] VITALS: BP 101/62
[2021-03-10] MEDS: HALOPERIDOL 5 MG TABLET PO PRN ×2 (09:14→17:00)
[2021-03-10] MEDS: IBUPROFEN 400 MG TABLET PO PRN (09:15)
[2021-03-10] MEDS: PALIPERIDONE 6 MG ER TABLET PO SCH ×2 (09:16→21:12)
[2021-03-10] MEDS: NICOTINE 14 MG/24 HOUR PATCH TD PRN (09:16)
[2021-03-10] MEDS: CloZAPine 100 MG TABLET PO SCH ×2 (09:16→21:12)
[2021-03-10] MEDS: QUEtiapine FUMARATE 300 MG TABLET PO SCH ×2 (09:17→16:02)
[2021-03-10] MEDS: OMEGA-3/DHA/EPA/FISH OIL 1,000 MG CAPSULE PO SCH (09:17)
[2021-03-10] MEDS: TOPIRAMATE 100 MG TABLET PO SCH ×2 (09:17→16:02)
[2021-03-10] MEDS: LORazepam 2 MG TABLET PO PRN ×2 (12:42→17:00)
[2021-03-10] MEDS: ACETAMINOPHEN 325 MG TABLET PO PRN (13:37)
[2021-03-10 16:24] VITALS: BP 109/74
[2021-03-11 01:18] VITALS: BP 106/71
[2021-03-11] MEDS: FERROUS SULFATE 325 MG EC TABLET PO SCH ×2 (06:40→16:02)
[2021-03-11 08:02] LABS: COVID AG,FIA SOURCE NASOPHARYNGEAL
[2021-03-11 08:30] VITALS: BP 117/60
[2021-03-11] MEDS: HALOPERIDOL 5 MG TABLET PO PRN ×2 (09:10→16:04)
[2021-03-11] MEDS: PALIPERIDONE 6 MG ER TABLET PO SCH ×2 (09:10→20:03)
[2021-03-11] MEDS: TOPIRAMATE 100 MG TABLET PO SCH ×2 (09:10→16:02)
[2021-03-11] MEDS: CloZAPine 100 MG TABLET PO SCH ×2 (09:10→20:03)
[2021-03-11] MEDS: OMEGA-3/DHA/EPA/FISH OIL 1,000 MG CAPSULE PO SCH (09:10)
[2021-03-11] MEDS: QUEtiapine FUMARATE 300 MG TABLET PO SCH ×2 (09:10→16:02)
[2021-03-11] MEDS: NICOTINE 14 MG/24 HOUR PATCH TD PRN (09:11)
[2021-03-11 16:37] VITALS: BP 104/63
[2021-03-11] MEDS: LORazepam 2 MG TABLET PO PRN (19:29)
[2021-03-11] MEDS: ACETAMINOPHEN 325 MG TABLET PO PRN (20:05)
[2021-03-12 06:13] VITALS: BP 115/65
[2021-03-12] MEDS: FERROUS SULFATE 325 MG EC TABLET PO SCH ×2 (06:24→16:28)
[2021-03-12] MEDS: TOPIRAMATE 100 MG TABLET PO SCH ×2 (08:47→16:28)
[2021-03-12] MEDS: HALOPERIDOL 5 MG TABLET PO PRN ×3 (08:48→20:38)
[2021-03-12] MEDS: NICOTINE 14 MG/24 HOUR PATCH TD PRN (08:48)
[2021-03-12] MEDS: QUEtiapine FUMARATE 300 MG TABLET PO SCH ×2 (08:48→16:28)
[2021-03-12] MEDS: PALIPERIDONE 6 MG ER TABLET PO SCH ×2 (08:48→20:38)
[2021-03-12] MEDS: OMEGA-3/DHA/EPA/FISH OIL 1,000 MG CAPSULE PO SCH (08:48)
[2021-03-12] MEDS: CloZAPine 100 MG TABLET PO SCH ×2 (08:48→20:39)
[2021-03-12] MEDS: LORazepam 2 MG TABLET PO PRN ×3 (10:22→20:38)
[2021-03-12] MEDS: IBUPROFEN 400 MG TABLET PO PRN (10:23)
[2021-03-12] MEDS: ACETAMINOPHEN 325 MG TABLET PO PRN (11:59)
[2021-03-12 13:13] VITALS: BP 128/90
[2021-03-12 16:26] VITALS: BP 131/68
[2021-03-12] MEDS: ZOLPIDEM TARTRATE 10 MG TABLET PO PRN (20:38)
[2021-03-13 01:57] VITALS: BP 127/70
[2021-03-13] MEDS: FERROUS SULFATE 325 MG EC TABLET PO SCH ×2 (06:25→17:09)
[2021-03-13] MEDS: PALIPERIDONE 6 MG ER TABLET PO SCH ×2 (08:57→20:09)
[2021-03-13] MEDS: TOPIRAMATE 100 MG TABLET PO SCH ×2 (08:57→17:05)
[2021-03-13] MEDS: CloZAPine 100 MG TABLET PO SCH ×2 (08:57→20:09)
[2021-03-13] MEDS: NICOTINE 14 MG/24 HOUR PATCH TD PRN (08:58)
[2021-03-13] MEDS: IBUPROFEN 400 MG TABLET PO PRN ×2 (08:58→19:47)
[2021-03-13] MEDS: QUEtiapine FUMARATE 300 MG TABLET PO SCH ×2 (08:58→17:05)
[2021-03-13] MEDS: LORazepam 2 MG TABLET PO PRN ×2 (08:58→19:47)
[2021-03-13] MEDS: OMEGA-3/DHA/EPA/FISH OIL 1,000 MG CAPSULE PO SCH (08:58)
[2021-03-13 09:36] VITALS: BP 114/75
[2021-03-13 16:29] VITALS: BP 110/68
[2021-03-13] MEDS: HALOPERIDOL 5 MG TABLET PO PRN (19:47)
[2021-03-13] MEDS: ZOLPIDEM TARTRATE 10 MG TABLET PO PRN (20:44)
[2021-03-14 01:39] VITALS: BP 119/72
[2021-03-14] MEDS: FERROUS SULFATE 325 MG EC TABLET PO SCH ×2 (06:39→16:33)
[2021-03-14] MEDS: HALOPERIDOL 5 MG TABLET PO PRN ×2 (08:40→13:10)
[2021-03-14] MEDS: LORazepam 2 MG TABLET PO PRN ×2 (08:40→13:10)
[2021-03-14 08:42] VITALS: BP 114/73
[2021-03-14] MEDS: PALIPERIDONE 6 MG ER TABLET PO SCH ×2 (09:00→20:16)
[2021-03-14] MEDS: OMEGA-3/DHA/EPA/FISH OIL 1,000 MG CAPSULE PO SCH (09:18)
[2021-03-14] MEDS: TOPIRAMATE 100 MG TABLET PO SCH ×2 (09:18→16:33)
[2021-03-14] MEDS: CloZAPine 100 MG TABLET PO SCH ×2 (09:19→20:16)
[2021-03-14] MEDS: QUEtiapine FUMARATE 300 MG TABLET PO SCH ×2 (09:19→16:33)
[2021-03-14] MEDS: NICOTINE 14 MG/24 HOUR PATCH TD PRN (10:00)
[2021-03-14] MEDS: IBUPROFEN 400 MG TABLET PO PRN (10:00)
[2021-03-14] MEDS: ACETAMINOPHEN 325 MG TABLET PO PRN (13:10)
[2021-03-14 16:28] VITALS: BP 124/70
[2021-03-15 06:05] VITALS: BP 95/69
[2021-03-15] MEDS: FERROUS SULFATE 325 MG EC TABLET PO SCH ×2 (06:23→16:19)
[2021-03-15 08:06] LABS: BASOPHILS % (AUTO) 0.6 % (0.0-2.0); EOSINOPHILS % (AUTO) 5.7 % (1.0-6.0); HEMOGLOBIN 13.2 g/dL (13.5-17.5); LYMPHOCYTES # (AUTO) 2.5 K/uL (1.0-4.8); MEAN CORPUSCULAR HEMOGLOBIN 29.8 pg (26.0-34.0); MEAN CORPUSCULAR HGB CONC 33.1 G/dL (31.0-37.0); MEAN CORPUSCULAR VOLUME 90 fL (80-100); MONOCYTES # (AUTO) 0.8 K/uL (0.1-1.0); NEUTROPHILS # (AUTO) 4.6 K/uL (1.8-7.7); NEUTROPHILS % (AUTO) 54.7 % (40.0-70.0); PLATELET COUNT (AUTO) 332 K/uL (150-450); RED BLOOD CELL COUNT(AUTO) 4.44 MIL/uL (4.50-5.90)
[2021-03-15 08:17] VITALS: BP 116/70
[2021-03-15] MEDS: PALIPERIDONE 6 MG ER TABLET PO SCH ×2 (08:33→20:21)
[2021-03-15] MEDS: HALOPERIDOL 5 MG TABLET PO PRN ×2 (08:34→13:52)
[2021-03-15] MEDS: OMEGA-3/DHA/EPA/FISH OIL 1,000 MG CAPSULE PO SCH (08:34)
[2021-03-15] MEDS: QUEtiapine FUMARATE 300 MG TABLET PO SCH ×2 (08:35→16:19)
[2021-03-15] MEDS: CloZAPine 100 MG TABLET PO SCH ×2 (08:35→20:22)
[2021-03-15] MEDS: TOPIRAMATE 100 MG TABLET PO SCH ×2 (08:35→16:19)
[2021-03-15] MEDS: LORazepam 2 MG TABLET PO PRN ×2 (08:36→13:52)
[2021-03-15] MEDS: NICOTINE 14 MG/24 HOUR PATCH TD PRN (08:54)
[2021-03-15] MEDS: IBUPROFEN 400 MG TABLET PO PRN ×2 (09:01→17:28)
[2021-03-15 16:17] VITALS: BP 117/78
[2021-03-15] MEDS: ZOLPIDEM TARTRATE 10 MG TABLET PO PRN (20:22)
[2021-03-16 04:50] VITALS: BP 111/66
[2021-03-16] MEDS: FERROUS SULFATE 325 MG EC TABLET PO SCH ×2 (06:35→16:35)
[2021-03-16 08:47] VITALS: BP 109/70
[2021-03-16] MEDS: PALIPERIDONE 6 MG ER TABLET PO SCH ×2 (08:51→20:20)
[2021-03-16] MEDS: TOPIRAMATE 100 MG TABLET PO SCH ×2 (08:52→16:35)
[2021-03-16] MEDS: OMEGA-3/DHA/EPA/FISH OIL 1,000 MG CAPSULE PO SCH (08:52)
[2021-03-16] MEDS: QUEtiapine FUMARATE 300 MG TABLET PO SCH ×2 (08:52→16:35)
[2021-03-16] MEDS: HALOPERIDOL 5 MG TABLET PO PRN ×2 (08:52→15:15)
[2021-03-16] MEDS: CloZAPine 100 MG TABLET PO SCH ×2 (08:52→20:20)
[2021-03-16] MEDS: LORazepam 2 MG TABLET PO PRN ×2 (08:52→15:15)
[2021-03-16] MEDS: NICOTINE 14 MG/24 HOUR PATCH TD PRN (08:52)
[2021-03-16] MEDS: IBUPROFEN 400 MG TABLET PO PRN (10:00)
[2021-03-16 16:19] VITALS: BP 113/76
[2021-03-16] MEDS: ZOLPIDEM TARTRATE 10 MG TABLET PO PRN (20:20)
[2021-03-17 00:42] VITALS: BP 113/76
[2021-03-17] MEDS: FERROUS SULFATE 325 MG EC TABLET PO SCH (06:29)
[2021-03-17] MEDS ORDERED: CLOZ100T32 PO (07:35)
[2021-03-17] MEDS: CloZAPine 100 MG TABLET PO SCH (08:47)
[2021-03-17] MEDS: PALIPERIDONE 6 MG ER TABLET PO SCH (08:47)
[2021-03-17] MEDS: OMEGA-3/DHA/EPA/FISH OIL 1,000 MG CAPSULE PO SCH (08:47)
[2021-03-17] MEDS: QUEtiapine FUMARATE 300 MG TABLET PO SCH (08:47)
[2021-03-17] MEDS: TOPIRAMATE 100 MG TABLET PO SCH (08:47)
[2021-03-17 10:05] VITALS: BP 112/74
== END 2021-03-17 10:50 | disposition home or self-care (01) | DRG 885 ==
LOC: B3A 17:30 → B2S 03-04 14:25 → B3A 03-14 19:56
PROVIDERS: ADMIT Psychiatry & Neurology Child & Adolescent Psychiatry; ATTEND Psychiatry & Neurology Child & Adolescent Psychiatry
DX: F25.1 Schizoaffective disorder, depressive type (principal); Z20.822 Contact with and (suspected) exposure to COVID-19; D64.9 Anemia, unspecified; E78.5 Hyperlipidemia, unspecified; Z59.0 Homelessness; F41.9 Anxiety disorder, unspecified
CPT/HCPCS: 0031A; 80053; 80061; 83036; 84436; 84439; 84443; 85025; 86592; 87081; 91303; G0480; J1200; J1630; J2060

== ENCOUNTER 2021-03-20 12:12 | Emergency (ER) | payer MEDICARE, OTHER ==
[~2021-03-20] VITALS: Ht 182.9 cm; Wt 100.0 kg
[~2021-03-20 12:12] MED LIST changes: -PROP20TA18 PO
[2021-03-20 15:34] LABS: BASOPHILS % (AUTO) 0.4 % (0.0-2.0); EOSINOPHILS % (AUTO) 2.5 % (1.0-6.0); HEMATOCRIT 39.2 % (41-53); HEMOGLOBIN 13.1 g/dL (13.5-17.5); LYMPHOCYTES # (AUTO) 1.8 K/uL (1.0-4.8); LYMPHOCYTES % (AUTO) 18.4 % (22.0-44.0); MEAN CORPUSCULAR HEMOGLOBIN 29.8 pg (26.0-34.0); MEAN CORPUSCULAR HGB CONC 33.5 G/dL (31.0-37.0); MEAN CORPUSCULAR VOLUME 89 fL (80-100); MONOCYTES # (AUTO) 0.8 K/uL (0.1-1.0); MONOCYTES % (AUTO) 8.1 % (2.0-9.0); NEUTROPHILS # (AUTO) 6.8 K/uL (1.8-7.7); NEUTROPHILS % (AUTO) 70.6 % (40.0-70.0); PLATELET COUNT (AUTO) 324 K/uL (150-450); RED BLOOD CELL COUNT(AUTO) 4.41 MIL/uL (4.50-5.90); RED CELL DISTRIBUTION WIDTH 14.4 % (11.5-14.5)
[2021-03-20 15:57] LABS: ANION GAP 13 mmol/L (8-16); CALCIUM, TOTAL 9.1 mg/dL (8.8-10.5); CARBON DIOXIDE 20 mmol/L (22-29); CHLORIDE 105 mmol/L (98-107); CREATININE 0.89 mg/dL (0.60-1.30); GLOMERULAR FILTR. RATE CALC > 60 mL/min (>60); GLUCOSE,RANDOM 121 mg/dL (70-110); SODIUM SERUM 138 mmol/L (136-145); UREA NITROGEN, BLOOD 7 mg/dL (7-18)
[2021-03-20 16:03] LABS: ALANINE AMINOTRANSFERASE 25 U/L (12-78); ALBUMIN 4.4 g/dL (3.4-5.0); ALKALINE PHOSPHATASE 130 U/L (46-116); ASPARTATE AMINOTRANSFERASE 13 U/L (15-37); BILIRUBIN,TOTAL 0.4 mg/dL (0.1-1.0); TOTAL PROTEIN, SERUM 7.8 g/dL (6.4-8.2)
[2021-03-20 16:08] LABS: AMPHET/METH SCREEN,URINE NEGATIVE (NEGATIVE); BARBITURATE SCREEN, URINE NEGATIVE (NEGATIVE); BENZODIAZEPINES SCREEN,URINE NEGATIVE (NEGATIVE); CANNABINOID SCREEN,URINE NEGATIVE (NEGATIVE); COCAINE SCREEN,URINE NEGATIVE (NEGATIVE); METHADONE SCREEN, URINE NEGATIVE (NEGATIVE); OPIATE SCREEN,URINE NEGATIVE (NEGATIVE)
[2021-03-20 16:09] LABS: PHENCYCLIDINE SCREEN,URINE NEGATIVE (NEGATIVE)
[2021-03-20] MEDS ORDERED: QUEtiapine FUMARATE 100 MG TABLET PO ONE (16:45)
[2021-03-20 17:21] VITALS: BP 136/77
== END 2021-03-20 17:20 | disposition home or self-care (01) ==
LOC: EMS 12:17
DX: F20.9 Schizophrenia, unspecified (principal)
CPT/HCPCS: 36415; 80053; 80307; 85025; 99284; G0480

== ENCOUNTER 2021-12-05 10:05 | Emergency (ER) | payer MEDICARE, OTHER ==
[~2021-12-05] VITALS: Ht 172.7 cm; Wt 86.4 kg
[2021-12-05] MEDS ORDERED: LORazepam 2 MG/ML VIAL ONE (10:20)
[2021-12-05] MEDS ORDERED: HALOPERIDOL LACTATE 5 MG/ML VIAL ONE (10:20)
[2021-12-05] MEDS ORDERED: DiphenhydrAMINE HCL 50 MG/ML VIAL ONE (10:20)
[2021-12-05] MEDS ORDERED: HALOPERIDOL LACTATE 5 MG/ML VIAL IM ONE (10:30)
[2021-12-05] MEDS ORDERED: DiphenhydrAMINE HCL 50 MG/ML VIAL IM ONE (10:30)
[2021-12-05] MEDS ORDERED: LORazepam 2 MG/ML VIAL IM ONE (10:30)
[2021-12-05 11:04] LABS: BASOPHILS % (AUTO) 0.4 % (0.0-2.0); HEMATOCRIT 35.2 % (41-53); HEMOGLOBIN 12.3 g/dL (13.5-17.5); LYMPHOCYTES # (AUTO) 1.5 K/uL (1.0-4.8); LYMPHOCYTES % (AUTO) 17.3 % (22.0-44.0); MEAN CORPUSCULAR HEMOGLOBIN 32.4 pg (26.0-34.0); MEAN CORPUSCULAR VOLUME 93 fL (80-100); MONOCYTES # (AUTO) 1.1 K/uL (0.1-1.0); MONOCYTES % (AUTO) 12.4 % (2.0-9.0); NEUTROPHILS % (AUTO) 68.9 % (40.0-70.0); PLATELET COUNT (AUTO) 285 K/uL (150-450)
[2021-12-05 11:20] LABS: ANION GAP 10 mmol/L (8-16); CALCIUM, TOTAL 8.8 mg/dL (8.8-10.5); CARBON DIOXIDE 28 mmol/L (22-29); CHLORIDE 102 mmol/L (98-107); CREATININE 0.95 mg/dL (0.60-1.30); GLOMERULAR FILTR. RATE CALC > 60 mL/min (>60); GLUCOSE,RANDOM 132 mg/dL (70-110); POTASSIUM 3.3 mmol/L (3.5-5.1); SODIUM SERUM 140 mmol/L (136-145); UREA NITROGEN, BLOOD 3 mg/dL (7-18)
[2021-12-05 11:41] LABS: ALANINE AMINOTRANSFERASE 34 U/L (12-78); ALBUMIN 3.4 g/dL (3.4-5.0); ALKALINE PHOSPHATASE 91 U/L (46-116); ASPARTATE AMINOTRANSFERASE 20 U/L (15-37); BILIRUBIN,TOTAL 0.4 mg/dL (0.1-1.0)
[2021-12-05 11:48] LABS: AMPHET/METH SCREEN,URINE POSITIVE (NEGATIVE); BARBITURATE SCREEN, URINE NEGATIVE (NEGATIVE); BENZODIAZEPINES SCREEN,URINE NEGATIVE (NEGATIVE); CANNABINOID SCREEN,URINE NEGATIVE (NEGATIVE); COCAINE SCREEN,URINE NEGATIVE (NEGATIVE); METHADONE SCREEN, URINE NEGATIVE (NEGATIVE); OPIATE SCREEN,URINE NEGATIVE (NEGATIVE)
[2021-12-05 11:49] LABS: PHENCYCLIDINE SCREEN,URINE NEGATIVE (NEGATIVE)
[2021-12-05 16:37] VITALS: BP 139/82
[2021-12-05] MEDS ORDERED: POTASSIUM CHLORIDE 10% 40 MEQ/30 ML LIQUID UDCUP PO ONE (17:00)
== END 2021-12-05 16:53 | disposition home or self-care (01) ==
LOC: EMS 10:05
DX: F19.10 Other psychoactive substance abuse, uncomplicated (principal); F20.9 Schizophrenia, unspecified
CPT/HCPCS: 36415; 80053; 80307; 85025; 96372; 99285; G0480; J1200; J1630; J2060